=== PATIENT | male | born 1960 | race Caucasian/White ===

== ENCOUNTER 2019-11-30 06:00 | Outpatient (REF) | payer OTHER, SELFPAY ==
[2019-11-30 06:19] LABS: COVID-19 Test Negative (Negative)
== END 2019-11-30 06:01 | disposition home or self-care (01) ==
LOC: HO.LAB 06:00
PROVIDERS: Visit Provider Internal Medicine
DX: Z20.828 Contact with and (suspected) exposure to other viral communicable diseases (principal)
CPT/HCPCS: 87635

== ENCOUNTER 2020-10-09 05:59 | Outpatient (REF) | payer OTHER, SELFPAY ==
[2020-10-09 07:14] LABS: Cholesterol 214 mg/dL; Glucose Random 87 mg/dL (60-115); HDL Cholesterol 39 mg/dL; LDL Cholesterol Calculated 104 mg/dl; Triglycerides 357 mg/dL
== END 2020-10-09 06:00 | disposition home or self-care (01) ==
LOC: HO.LAB 05:59
PROVIDERS: PCP Internal Medicine; Visit Provider Internal Medicine
DX: Z00.00 Encounter for general adult medical examination without abnormal findings (principal)
CPT/HCPCS: 36415; 80061; 82947

== ENCOUNTER 2022-07-23 06:01 | Outpatient (REF) | payer OTHER, SELFPAY ==
[2022-07-23 06:29] LABS: MANUAL DIFF FLAG NO
[2022-07-23 07:28] LABS: Basophils Absolute Auto 0.1 X10*3/uL (0.0-0.2); Eosinophils Absolute Auto 0.3 X10*3/uL (0.0-0.4); Eosinophils Percent Auto 4.3 % (0-4); Hematocrit 46.9 % (42.0-52.0); Hemoglobin 15.9 g/dl (14.0-18.0); Imm Gran Abs Auto 0.02 X10*3/uL (0.00-0.03); Imm Gran Pct Auto 0.3 % (0.0-0.4); Lymphocytes Absolute Auto 1.8 X10*3/uL (1.2-4.9); Lymphocytes Percent Auto 22.7 % (20-40); Mean Corpuscular HGB Conc 33.9 g/dl (31.0-36.0); Mean Corpuscular Hemoglobin 29.6 pg (27.0-33.0); Mean Corpuscular Volume 87.2 fL (80.0-98.0); Mean Platelet Volume 10.9 fL (9.4-12.4); Monocytes Percent Auto 12.3 % (2-11); Neutrophils Absolute Auto 4.7 x10*3/uL (2.0-8.3); Neutrophils Percent Auto 59.4 % (45-73); Platelet Count 367 X10*3/uL (160-400); Red Blood Count 5.38 X10*6/uL (4.60-5.80); Red Cell Distribution Width 12.1 % (11.0-16.0)
[2022-07-23 08:07] LABS: Alanine Aminotransferase 34 U/L (0-40); Albumin Level 4.7 g/dL (3.5-5.0); Alkaline Phosphatase 71 U/L (39-117); Anion Gap 15 (12-20); Aspartate Amino Transferase 28 U/L (5-37); Bilirubin Total 0.5 mg/dL (0.0-1.0); Blood Urea Nitrogen 24 mg/dL (9-16); Calcium 10.3 mg/dL (8.4-10.2); Carbon Dioxide 26 mmol/L (22-29); Chloride 102 mmol/L (96-108); Estimated Glomerular Filt Rate > 60; Glucose Random 83 mg/dL (60-115); Potassium 5.1 mmol/L (3.3-5.1); Sodium 138 mmol/L (135-145); Total Protein 7.9 g/dL (6.5-8.0)
[2022-07-23 08:53] LABS: Cocaine Screen Urine Not Detected (Not Detect); Opiate Screen Urine Not Detected (Not Detect)
[2022-07-26 01:54] LABS: LDL Cholesterol Direct 140 mg/dL (<100)
[2022-08-14 09:10] LABS: Alphahydroxytriazolam, GCMS Ur NEGATIVE; Alprazolam, GCMS Urine NEGATIVE; Lorazepam GCMS Urine NEGATIVE; Nordiazepam, GCMS Urine NEGATIVE; Temazepam, GCMS Urine NEGATIVE
[2022-08-14 09:11] LABS: Alphahydroxymidazolam,GCMS Ur NEGATIVE; Aminoclonazepam, GCMS Urine SEE COMMENTS; Flurazepam Metabolite,GCMS Ur SEE COMMENTS
[2022-08-14 09:15] LABS: Benzo GC/MS Note SEE COMMENTS
== END 2022-07-23 06:02 | disposition home or self-care (01) ==
LOC: HO.LAB 06:01
PROVIDERS: PCP Family Medicine; Visit Provider Family Medicine
DX: Z00.00 Encounter for general adult medical examination without abnormal findings (principal); M25.551 Pain in right hip; I10 Essential (primary) hypertension; E78.5 Hyperlipidemia, unspecified
CPT/HCPCS: 80053; 80307; 80346; 83721; 85025

== ENCOUNTER 2022-08-30 12:12 | Outpatient (REF) | payer OTHER, SELFPAY | END 2022-08-30 12:13 | disposition home or self-care (01) | LOC: HO.HOSX 12:12 | PROVIDERS: Visit Provider Orthopaedic Surgery | DX: Z13.89 Encounter for screening for other disorder (principal) ==

== ENCOUNTER 2023-03-09 04:57 | Emergency (ER) | payer OTHER, SELFPAY ==
--- NOTE | ~2023-03-09 | XR_ITS ---
EXAMINATION: XR KNEE, RIGHT CLINICAL INFORMATION: Twisting injury COMPARISON: None available. TECHNIQUE: Four views of the right knee. FINDINGS: Osseous alignment is anatomic. There is moderate tricompartmental joint space narrowing and spurring. No acute fracture is seen. Postoperative changes noted with hardware at the distal femur and proximal tibia. Trace joint effusion. XR/XR knee RT 4V IMPRESSION: No acute osseous findings. Trace joint effusion. Chronic/degenerative changes.
[2023-03-09 05:01] VITALS: BP 202/103; PULSE 81; RESP 20; TEMP 36.9; O2SAT 95
[2023-03-09 05:03] VITALS: BP 202/103; BP 223/121; PULSE 80; RESP 20; TEMP 36.9; O2SAT 96; O2SAT 97; BMI 36.6
--- NOTE | 2023-03-09 05:04 | ED.LOWEXIN ---
HPI - Extremity Injury (Lower) General Chief Complaint: Fall Stated Complaint: fell, twisted knee Time Seen by Provider: 03/09/23 05:04 Source: patient Mode of arrival: ambulatory Limitations: no limitations History of Present Illness HPI Narrative: 62 yo male with PMH of HTN, arthritis compliant with his medications was at work tonight tripped on O2 tubing and slipped on pillowcase causing him to fall and twist his R knee. He is having a hard time fully flexing and extending the knee has pain on lateral and posterior aspect. 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 Prior ACL surgery on knee. complaint: knee injury Onset (ago): day(s) (1130pm last night) Injury: Right: knee Type of Injury: other (twisting) Place: work Severity: moderate Relieving factors: rest Exacerbating factors: weight bearing, movement and palpation Context: other (twisting, fall) Associated symptoms: swelling Other symptoms: none Related Data Allergies Allergy/AdvReac Type Severity Reaction Status Date / Time Penicillins AdvReac Hives Verified 03/09/23 05:48 Review of Systems Review of Systems: Constitutional : No Fever, No Chills ENT/Mouth : No Ear Pain, No Hoarseness, No sore throat Eyes: No Eye Pain, No Swelling, No Redness, No Foreign Body Cardiovascular : No Chest Pain, No SOB Respiratory : No Cough, No Dyspnea Gastrointestinal : No Nausea, No Vomiting, No Diarrhea, No abdominal Pain Genitourinary : No Dysuria, No Hematuria Musculoskeletal : positive joint pain, No Myalgias, pos Joint Swelling Skin : No Skin lacerations, No rash Neuro : No Weakness, No Numbness, No Loss of Consciousness, No Dizziness, No Headache Psych : No Anxiety/Panic, No Depression All other systems reviewed and are negative [facility] Past Medical History Attestation statement: The following information was validated with the patient. Source: old records reviewed Medical History Arthritis HTN (hypertension) Social History Social History Patient Tobacco Use Status: Never used Tobacco Advance Directives: No Advance Directives Information Provided: Yes Physical Exam Vital Signs: Vital Signs: Last Vital Signs Temp 98.4 F 03/09/23 05:03 Pulse 80 03/09/23 05:03 Resp 20 03/09/23 05:03 BP 202/103 H 03/09/23 05:03 Pulse Ox 97 03/09/23 05:03 O2 Del Method Room Air 03/09/23 05:03 BMI result Body Mass Index 36.6 Appearance: Alert. Oriented X3. No acute distress. Eyes: Pupils equal, round and reactive to light. ENT: Pharynx normal. Neck: Normal inspection. Neck supple. CVS: Normal heart rate and rhythm. Pulses normal. Respiratory: No respiratory distress. Breath sounds normal. Abdomen: Soft and nontender. Skin: Skin warm and dry. Normal skin color. Normal skin turgor. Extremities: No lower extremity edema. R knee small effusion having a hard time geting knee to full flex/ext distal NV intact, ttp along medial meniscus no sig laxity noted distal NV intact Neuro: Oriented X 3. No motor deficit. No sensory deficit. Course Course Course Narrative: manjit wrap knee - tolerated well he has immobilizer at home and knee brace he wants to use he has HTN asymptomatic declines work up and wants to take his medications at home no signs of end organ damage Medical Decision Making Medical Decision Making MDM Narrative: 62 yo male with PMH of HTN, arthritis compliant with his medications here with R knee twisting injury that occurred at work - he is NV intact has pain in R knee at this time will need xray of R knee. He is also HTNive but is asymptomatic and reports compliance no signs of end organ damage from HTN. Differential Diagnosis Differential Diagnoses: The differential diagnosis associated with the presentation includes sprain, strain, effusion, fracture Independent Interpretation I performed an independent interpretation of an: Plain X-Ray (no fracture) Radiology Impression Discussion of test interpretation with radiology: I have reviewed the radiologist's reading. Chronic Conditions Patient?s care impacted by: Hypertension Discharge Plan Discharge Clinical Impression: Right knee sprain Qualifiers: Encounter type: initial encounter Involved ligament of knee: unspecified ligament Qualified Code(s): S83.91XA - Sprain of unspecified site of right knee, initial encounter Patient Disposition: Home, Self-Care Instructions: Knee Sprain (ED), Chronic Hypertension (ED) Additional Instructions: keep elevated, ice, rest. follow up with work connection for clearance and orthopedics. return for worsening pain, swelling, numbness, tingling Referrals: Carlos A Mclean MD [Physician] - (any provider) Stand Alone Forms: Work/School Release
[2023-03-09 06:29] VITALS: BP 195/104; O2SAT 98
--- NOTE | 2023-03-09 06:39 | PC.NURSE ---
Reviewed discharge instructions with pt. pt verbalized understanding. no sign of distress.
== END 2023-03-09 06:40 | disposition home or self-care (01) ==
PROVIDERS: Emergency Provider Emergency Medicine; PCP Family Medicine
DX: S83.91XA Sprain of unspecified site of right knee, initial encounter (principal); X50.1XXA Overexertion from prolonged static or awkward postures, initial encounter; Y93.89 Activity, other specified; Y92.019 Unspecified place in single-family (private) house as the place of occurrence of the external cause; Y99.9 Unspecified external cause status
CPT/HCPCS: 73564; 99283; 99284

== ENCOUNTER → 2023-03-09 13:46 | Outpatient (BNVA) | payer OTHER, SELFPAY | PROVIDERS: PCP Family Medicine; Visit Provider Physician Assistant | DX: Z13.89 Encounter for screening for other disorder (principal) | CPT/HCPCS: 99203 ==

== ENCOUNTER → 2023-03-11 09:44 | Outpatient (BNVA) | payer OTHER, SELFPAY | PROVIDERS: PCP Family Medicine; Visit Provider Physician Assistant | CPT/HCPCS: 99213 ==

== ENCOUNTER 2023-05-26 08:33 | Outpatient (AMB) | payer OTHER, SELFPAY ==
[2023-05-26 08:43] VITALS: BP 130/90; PULSE 74; TEMP 36.3; O2SAT 97; BMI 35.1
--- NOTE | 2023-05-26 08:43 | MHC.OFFWIV ---
Intake Vital Signs 05/26/23 08:43 Height 6 ft Weight 259 lb BMI 35.1 BP 130/90 H Blood Pressure Location Lt brachial Position Sitting Pulse 74 Pulse Source Pulse Oximeter Temp 97.3 F Temp Source Temporal Artery Scan Pulse Oximetry (%) 97 Oxygen Delivery Method Room Air Intake Visit Reasons: EP Sinus infection, Throat hurts Intake Note: pt is here today for sinus infection throat hurts started 1 week ago Patient Tobacco Use Status: Never used Tobacco Allergies Penicillins Adverse Reaction (Verified 05/26/23 08:53) Hives Do you need a note to return to daycare/school/sports/work: No HPI EP Sinus infection, Throat hurts HPI Details This is a 63-year-old male patient who presents today with a one-week history of sinus pressure, sore throat, and left ear pain. States he has had nasal congestion with green mucus, and mildly productive cough. Denies any fever or chills. Has been taking [id number] Tylenol and cold/flu medication without relief. [facility] Medical History Arthritis HTN (hypertension) Social History Patient Tobacco Use Status: Never used Tobacco Review of Systems Const All systems reviewed & are unremarkable except as noted in HPI and below Physical Exam Vital Signs: Last Vital Signs Temp 97.3 F 05/26/23 08:43 Pulse 74 05/26/23 08:43 BP 130/90 H 05/26/23 08:43 Pulse Ox 97 05/26/23 08:43 Oxygen Delivery Method Room Air 05/26/23 08:43 BMI result Body Mass Index 35.1 Const General: cooperative, healthy appearing and no acute distress HEENT Head: Yes normal to inspection Ears: hearing grossly normal bilaterally, external ears normal, TM normal on the left and TM abnormal (right TM erythematous, purulent effusion) General nose exam: Normal external nose present and Nasal discharge present mucoid Face and sinus: Yes sinus tenderness (maxillary) Mouth: Normal oral and palatal mucosa present Throat: Yes posterior oropharynx abnormal (mild erythema) Neck Neck: Yes no lymphadenopathy Resp Effort & Inspection: normal respiratory effort Auscultation: clear to auscultation bilaterally Cardio Rate: regular rate Rhythm: regular rhythm Skin General skin exam: no rashes or lesions noted Extrem General: Yes capillary refill normal and Yes no clubbing, cyanosis or edema Psych Appearance: grossly normal Mental Status: mental status grossly normal Speech and movement: Normal speech and movement present Results AMB Rapid Strep AMB Rapid Strep Negative Last Edit by Amol Benitez MA on 05/26/23 09:10 Assessment & Plan Assessment & Plan (1) Acute left otitis media: Code(s): H66.92 - Otitis media, unspecified, left ear Plan: Rapid strep negative. PCN allergy. Doxycycline bid 7 days for left OM. Reviewed indications, use, possible s/e. Advised ongoing otc cold/flu medication for symptom management. If he does not improve with treatment, he can return to the clinic for further evaluation. He agrees to plan. Medications: New doxycycline hyclate 100 mg PO BID 7 days 14 caps 0RF H66.92 - Otitis media, unspecified, left ear Coding Level of Care Code Est Pt Level 4 (06025) Diagnoses Acute left otitis media H66.92
== END 2023-05-26 09:11 | disposition home or self-care (01) ==
PROVIDERS: PCP Family Medicine; Visit Provider Nurse Practitioner Family
DX: H66.92 Otitis media, unspecified, left ear (principal)
CPT/HCPCS: 99214

== ENCOUNTER 2023-11-01 15:42 | Outpatient (AMB) | payer OTHER, SELFPAY ==
--- NOTE | 2023-11-01 15:47 | A.OFFPC_ITS ---
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 Intake Note: pt is here for est care, requesting PE Director Of Rotc Required: No Accompanied by: Self / Same As Patient Allergies Penicillins Adverse Reaction (Verified 11/01/23 15:48) Hives Medication List - Last Reconciled 11/01/23 by PATRICIO Lopez clonidine HCl 0.3 mg PO BID labetalol 400 mg PO tramadol 50 - 100 mg PO QID PRN Tobacco use date assessed: 11/01/23 Dental Screening Dental Screen Date: 11/01/23 Did you have a dental visit in the last 12 months?: Yes Did you have a dental problem in the last 6 months where you did not have access to dental care?: No Was dental information given to patient?: Patient has dentist HPI 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 Will order labs. Refuses all colon screens. Pt has been on tramadol for over 20 years due to chronic back and shoulder pain. Will have pt sign a narcotic contract. [facility] Medical History (Updated 11/01/23 @ 16:23 by PATRICIO Lopez) Chronic lower back pain Chronic right shoulder pain Arthritis HTN (hypertension) Surgical History S/P knee surgery Family History Mother No problems noted. Father High blood pressure Social History Housing: House Alcohol intake: current Alcohol intake frequency: a few times a month Alcohol type: beer Patient Tobacco Use Status: Never used Tobacco Use of substances other than those prescribed or required for medical reasons: No service: No Current occupational status: employed Current occupation: [employer] - envi[employer] Current occupational exposures/hazards: No Cognitive needs: No Hearing needs: No Vision needs: No Questionnaire PHQ-9 Over the last 2 weeks, how often have you been bothered by any of the following problems? 1. Little interest or pleasure in doing things: not at all 2. Feeling down, depressed, or hopeless: not at all 3. Trouble falling or staying asleep, or sleeping too much: not at all 4. Feeling tired or having little energy: not at all 5. Poor appetite or overeating: not at all 6. Feeling bad about yourself - or that you are a failure or have let yourself or your family down: not at all 7. Trouble concentrating on things, such as reading the newspaper or watching television: not at all 8. Moving or speaking so slowly that other people could have noticed. Or the opposite - being so fidgety or restless that you have been moving around a lot more than usual: not at all 9. Thoughts that you would be better off or of hurting yourself in some way: not at all Total score: 0 Depression Screening Interpretation: Negative Depression Screening Done: Yes 88731 - PHQ-9 Billing: Yes Source: Developed by Drs. Michael Montez, Waleska Bills, Richard Roberts and colleagues, with an educational mio from [employer]. Thrive Questionnaire Date Thrive assessed: 11/01/23 I am a: Patient What is your living situation today?: I have a steady place to live Within the past 12 months, did the food you bought not last and you didn't have the money to get more?: Never true Within the past 12 months, did you worry whether your food would run out before you got money to buy more?: Never true Do you have trouble paying for medicines?: No Do you have trouble getting transportation to medical appointments?: No Do you have trouble paying your heating and electricity bill?: No Do you have trouble taking care of your child, family member or friend?: No Do you have trouble with day-to-day activities such as bathing, preparing meals, shopping, managing finances, etc.?: No Are you interested in more education?: No Please select the resources that you would like help with: None Currently or been in a relationship where the following occur: No concerns reported THRIVE Score: 0 AUDIT C Alcohol Use Questionnaire (AUDIT-C) 1. How often do you have a drink containing alcohol?: 2-4 times a month 2. How many drinks containing alcohol do you have on a typical day when you are drinking?: 1 or 2 3. How often do you have six or more drinks on one occasion?: Less than monthly Total Score: 3 Score Reviewed/Action Taken: Yes TERRANCE-7 AMB Questionnaire TERRANCE-7 Date TERRANCE - 7 assessed: 11/01/23 Feeling nervous, anxious, or on edge: 0 = Not at all Not being able to stop or control worryin = Not at all Worrying too much about different things: 0 = Not at all Trouble relaxin = Not at all Being so restless that it is hard to sit still: 0 = Not at all Becoming easily annoyed or irritable: 0 = Not at all Feeling afraid as if something awful might happen: 0 = Not at all Total TERRACNE-7 score (0-4 normal; 5-9 mild; 10-14 moderate; 15-21 severe): 0 Source: Developed by Drs. Michael Montez, Waleska Bills, Richard Roberts and colleagues, with an educational mio from [employer]. TERRANCE-7 Assessment Billing TERRANCE-7 Assessment Tool: TERRANCE-7 Assessment 90897 Review of Systems Const Denies chills and Denies fever(s) Eyes Denies blurry vision ENT Denies vertigo, Denies dizziness and Denies sore throat Card Denies chest pain at rest, Denies chest pain with activity, Denies diaphoresis, Denies dyspnea and Denies dyspnea on exertion Resp Denies cough, Denies dyspnea, Denies dyspnea on exertion and Denies wheezing GI Denies abdominal pain, Denies melena, Denies hematochezia, Denies constipation, Denies diarrhea and Denies loose stools Denies hematuria Musc Denies numbness and Denies tingling Skin/Breast Denies lesions Neuro Denies vertigo, Denies dizziness, Denies numbness and Denies tingling Psych Denies anxiety, Denies depression, Denies homicidal ideation, Denies suicidal ideation and Denies other (substance abuse) Aller/Immun Denies wheezing Physical exam (Primary Care) Vital Signs: Last Vital Signs Pulse 78 11/01/23 15:48 BP 138/90 H 11/01/23 15:48 Pulse Ox 97 11/01/23 15:48 Oxygen Delivery Method Room Air 11/01/23 15:48 BMI result Body Mass Index 35.4 Tobacco/Smoking Status: Tobacco use Status Tobacco use date assessed 11/01/23 11/01/23 15:52 Patient Tobacco Use Status Never used Tobacco 11/01/23 15:52 PHQ-9: PHQ-9 Score PHQ-9: Total score 0 11/01/23 16:25 Depression Screening Interpretation: Negative Thrive Assessment: Date of Thrive Assessment Date Thrive assessed 11/01/23 11/01/23 15:52 Currently or been in a relationship where the following occur: No concerns reported Const General: cooperative Nutritional Appearance: well nourished Orientation/consciousness: patient oriented x3 HENMT Head: Yes normal to inspection, Yes normocephalic and Yes atraumatic Ears: TM's normal bilaterally Eyes General: appearance normal, both eyes and all related structures Alignment and Position: alignment normal and position normal Neck Neck: Yes normal visual inspection, Yes no lymphadenopathy and Yes supple Resp Effort & Inspection: normal respiratory effort Auscultation: clear to auscultation bilaterally Cardio Rate: regular rate Rhythm: regular rhythm Heart sounds: S1 normal heart sound present, S2 normal heart sound present and no murmurs GI Palpation (GI): Soft to palpation and nontender Auscultation: normal bowel sounds Male General Exam: Yes normal external exam Penis: normal penis Scrotum: scrotum normal, testes descended bilaterally and no inguinal hernias Testes: no testicular mass Skin Rashes: no rashes Neuro General: patient oriented x3, moves all extremities, no focal motor deficits and deep tendon reflexes 2+ bilaterally Romberg Test: Negative Psych Appearance: grossly normal Mental Status: mental status grossly normal Speech and movement: Normal speech and movement present Affect: normal affect Attitude: cooperative Thought process: Normal thought process present Thought content: Normal thought content present Insight: Good insight present (Psych) Judgement: Good judgement present (Psych) Assessment and Plan Assessment & Plan (1) Physical exam: Code(s): Z00.00 - Encounter for general adult medical examination without abnormal findings Plan: Labs ordered (2) Chronic right shoulder pain: Code(s): M25.511 - Pain in right shoulder; G89.29 - Other chronic pain Plan: Taking tramadol (3) Chronic lower back pain: Code(s): M54.50 - Low back pain, unspecified; G89.29 - Other chronic pain Plan: Taking tramadol Plan The patient agreed to the use of a medical lab tech instructor for this encounter. Scribed for PATRICIO Sotelo by Sondra Mendez medical lab tech instructor, on 11/01/2023 at 16:10 EST. Medications: Changed From labetalol 100mg every 6 hrs 400 mg PO To labetalol 400 mg orally 100mg 4 times a day; 100mg every 6 hrs 180 tabs 1RF 90 days Coding Level of Care Code New Pt Prev Care 40-64y(85775) Diagnoses Physical exam Z00.00 Chronic right shoulder pain M25.511; G89.29 Chronic lower back pain M54.50; G89.29 Additional Codes TERRANCE-7 Assessment Billing - TERRANCE-7 Assessment Tool: TERRANCE-7 Assessment 64843 ([id number])
[2023-11-01 15:48] VITALS: BP 138/90; PULSE 78; O2SAT 97; BMI 35.4
[2023-11-01 16:37] VITALS: BP 130/80
== END 2023-11-01 16:45 | disposition home or self-care (01) ==
PROVIDERS: PCP Family Medicine; Visit Provider Nurse Practitioner Family
DX: Z00.00 Encounter for general adult medical examination without abnormal findings (principal); M25.511 Pain in right shoulder; G89.29 Other chronic pain; M54.50 Low back pain, unspecified

== ENCOUNTER → 2023-11-01 15:42 | Outpatient (BNVA) | payer OTHER, SELFPAY | PROVIDERS: PCP Family Medicine; Visit Provider Nurse Practitioner Family | DX: Z00.00 Encounter for general adult medical examination without abnormal findings (principal); G89.29 Other chronic pain; M25.511 Pain in right shoulder; M54.50 Low back pain, unspecified | CPT/HCPCS: 96127 ==

== ENCOUNTER 2024-01-31 06:03 | Outpatient (REF) | payer OTHER, SELFPAY ==
[2024-01-31 06:17] LABS: MANUAL DIFF FLAG NO
[2024-01-31 08:00] LABS: Basophils Absolute Auto 0.1 X10*3/uL (0.0-0.2); Eosinophils Absolute Auto 0.3 X10*3/uL (0.0-0.4); Eosinophils Percent Auto 2.5 % (0-4); Hematocrit 43.3 % (42.0-52.0); Imm Gran Abs Auto 0.03 X10*3/uL (0.00-0.03); Imm Gran Pct Auto 0.3 % (0.0-0.4); Lymphocytes Absolute Auto 2.4 X10*3/uL (1.2-4.9); Lymphocytes Percent Auto 24.1 % (20-40); Mean Corpuscular HGB Conc 34.6 g/dl (31.0-36.0); Mean Corpuscular Hemoglobin 29.5 pg (27.0-33.0); Mean Corpuscular Volume 85.1 fL (80.0-98.0); Mean Platelet Volume 10.7 fL (9.4-12.4); Monocytes Absolute Auto 0.9 X10*3/uL (0.1-1.2); Monocytes Percent Auto 9.3 % (2-11); Neutrophils Absolute Auto 6.2 x10*3/uL (2.0-8.3); Neutrophils Percent Auto 62.8 % (45-73); Platelet Count 378 X10*3/uL (160-400); Red Blood Count 5.09 X10*6/uL (4.60-5.80); Red Cell Distribution Width 12.1 % (11.0-16.0); White Blood Count 9.9 X10*3/uL (4.8-10.8)
[2024-01-31 08:22] LABS: Appearance Urine Clear; Color Urine Yellow; Glucose Urine UA Negative (Negative); Leukocyte Esterase Urine Negative (Negative); Nitrite Urine Negative (Negative); Urine Blood Negative (Negative); Urine Ketones Negative (Negative); Urine Protein Negative (Neg-Trace)
[2024-01-31 08:38] LABS: Prostate Specific Antigen Scr 0.18 ng/mL (<0.05-4.0)
[2024-01-31 08:40] LABS: Albumin Level 4.5 g/dL (3.5-5.0); Anion Gap 14 (12-20); Aspartate Amino Transferase 32 U/L (5-37); Bilirubin Total 0.5 mg/dL (0.0-1.0); Blood Urea Nitrogen 17 mg/dL (9-16); Calcium 9.6 mg/dL (8.4-10.2); Carbon Dioxide 27 mmol/L (22-29); Chloride 101 mmol/L (96-108); Cholesterol 197 mg/dL (<200); Estimated Glomerular Filt Rate > 60; Glucose Fasting 94 mg/dL (60-99); HDL Cholesterol 49 mg/dL (>40); LDL Cholesterol Calculated 127 mg/dL (<100); Potassium 4.8 mmol/L (3.3-5.1); Sodium 137 mmol/L (135-145); Total Protein 7.4 g/dL (6.5-8.0); Triglycerides 108 mg/dL (<150)
[2024-01-31 08:56] LABS: TSH reflex Free T4 1.69 uIU/mL (0.32-4.0); Vitamin D 25-OH Total 55.3 ng/mL (>30)
[2024-01-31 09:21] LABS: Alanine Aminotransferase 30 U/L (0-40); Alkaline Phosphatase 70 U/L (39-117)
== END 2024-01-31 06:04 | disposition home or self-care (01) ==
LOC: HO.LAB 06:03
PROVIDERS: PCP Nurse Practitioner Family; Visit Provider Nurse Practitioner Family
DX: Z12.5 Encounter for screening for malignant neoplasm of prostate (principal); I10 Essential (primary) hypertension; E55.9 Vitamin D deficiency, unspecified
CPT/HCPCS: 36415; 80053; 80061; 81003; 82306; 84153; 84443; 85025

== ENCOUNTER 2024-04-30 06:03 | Outpatient (REF) | payer OTHER, SELFPAY ==
[2024-04-30 07:57] LABS: Albumin Level 4.7 g/dL (3.5-5.0); Alkaline Phosphatase 71 U/L (39-117); Anion Gap 14 (12-20); Aspartate Amino Transferase 23 U/L (5-37); Bilirubin Total 0.5 mg/dL (0.0-1.0); Blood Urea Nitrogen 13 mg/dL (9-16); Calcium 9.6 mg/dL (8.4-10.2); Carbon Dioxide 26 mmol/L (22-29); Chloride 106 mmol/L (96-108); Cholesterol 154 mg/dL (<200); Estimated Glomerular Filt Rate > 60; Glucose Fasting 109 mg/dL (60-99); HDL Cholesterol 47 mg/dL (>40); LDL Cholesterol Calculated 91 mg/dL (<100); Potassium 4.9 mmol/L (3.3-5.1); Sodium 141 mmol/L (135-145); Triglycerides 83 mg/dL (<150)
[2024-04-30 08:10] LABS: Alanine Aminotransferase 30 U/L (0-40)
== END 2024-04-30 06:04 | disposition home or self-care (01) ==
LOC: HO.LAB 06:03
PROVIDERS: PCP Nurse Practitioner Family; Visit Provider Nurse Practitioner Family
DX: E78.5 Hyperlipidemia, unspecified (principal)
CPT/HCPCS: 36415; 80053; 80061

== ENCOUNTER 2024-11-26 08:58 | Outpatient (AMB) | payer OTHER, SELFPAY ==
--- NOTE | 2024-11-26 09:02 | A.OFFPC_ITS ---
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 He has a history of chronic back pain for which he takes tramadol. He is on a pain management contract with the physician, which will be renewed for the current year. The patient denies any chest pain, shortness of breath, abdominal pain, blood in stool, constipation, diarrhea, suicidal ideation, or homicidal ideation. He declines a colonoscopy but is interested in the Cologuard test for colon cancer screening. HTN: adding amlodipine 5mg to his med regime. He understands the major side effects and goal BP as well. He will cont to monitor at home, report elevated values Health Maintenance - Colon cancer screening with stool test (Cologuard) discussed as an alternative to colonoscopy -declined most vaccinations (except TdaP , pharmacy) Social History Review of Systems - Cardiovascular: Denies chest pain - Respiratory: Denies shortness of breat h - Gastrointestinal: Denies abdominal adin n, blood in stool, constipation, diarrhea - Psychiatric: Denies suicidal ideation, homicidal ideation Physical Exam General: Cooperative, healthy appearing, comfortable, no acute distress and well developed Orientation: Patient oriented x3 Limitations: No limitations Head: Normal to inspection Ears: Hearing grossly normal bilaterally Nose: Normal external nose present Face and sinus: Normal facial exam Eyes: Appearance normal, both eyes and all related structures Neck: Normal visual inspection and Yes full ROM Respiratory: Normal respiratory effort and able to speak in complete sentences. Clear to auscultation bilaterally Cardiovascular: Regular rate and rhythm. Normal S1 and S2 GI: Normal to inspection. Soft to palpation and nontender : Testicles without masses/lesions and no hernias appreciated Skin: No rashes or lesions noted Neuro: Patient oriented x3 Extremities: Normal to inspection Results Plan 1. Chronic Back Pain The patient continues to manage chronic back pain with tramadol and is under a pain management contract, which will be renewed. 2. Essential (primary) hypertension I10 The patient prefers Cologuard for colon cancer screening over a colonoscopy, and this will be ordered. Discussion Notes I discussed with the patient the option of using Cologuard for colon cancer screening as an alternative to colonoscopy, which he prefers. We also reviewed his pain management contract, which he will re-sign for this year. Patient Instructions - Continue taking tramadol as prescribed for back pain. - Complete the Cologuard test as ordered for colon cancer screening. - Re-sign the pain management contract f or this year. [facility] Medical History Chronic lower back pain Chronic right shoulder pain Arthritis HTN (hypertension) Surgical History S/P knee surgery Family History Mother No problems noted. 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 1. Little interest or pleasure in doing things: not at all 2. Feeling down, depressed, or hopeless: not at all 3. Trouble falling or staying asleep, or sleeping too much: not at all 4. Feeling tired or having little energy: not at all 5. Poor appetite or overeating: not at all 6. Feeling bad about yourself - or that you are a failure or have let yourself or your family down: not at all 7. Trouble concentrating on things, such as reading the newspaper or watching television: not at all 8. Moving or speaking so slowly that other people could have noticed. Or the opposite - being so fidgety or restless that you have been moving around a lot more than usual: not at all 9. Thoughts that you would be better off or of hurting yourself in some way: not at all Total score: 0 Depression Screening Interpretation: Negative Depression Screening Done: Yes 66185 - PHQ-9 Billing: Yes Source: Developed by Drs. Michael Montez, Waleska Bills, Richard Roberts and colleagues, with an educational mio from [employer]. Thrive Questionnaire Date Thrive assessed: 11/01/23 I am a: Patient What is your living situation today?: I have a steady place to live Within the past 12 months, did the food you bought not last and you didn't have the money to get more?: Never true Within the past 12 months, did you worry whether your food would run out before you got money to buy more?: Never true Do you have trouble paying for medicines?: No Do you have trouble getting transportation to medical appointments?: No Do you have trouble paying your heating and electricity bill?: No Do you have trouble taking care of your child, family member or friend?: No Do you have trouble with day-to-day activities such as bathing, preparing meals, shopping, managing finances, etc.?: No Are you currently unemployed and looking for a job?: No Are you interested in more education?: No Please select the resources that you would like help with: None Currently or been in a relationship where the following occur: No concerns reported THRIVE Score: 0 AUDIT C Alcohol Use Questionnaire (AUDIT-C) 1. How often do you have a drink containing alcohol?: 2-4 times a month 2. How many drinks containing alcohol do you have on a typical day when you are drinking?: 3 or 4 3. How often do you have six or more drinks on one occasion?: Less than monthly Total Score: 4 Score Reviewed/Action Taken: Yes TERRANCE-7 AMB Questionnaire TERRANCE-7 Date TERRANCE - 7 assessed: 11/26/24 Feeling nervous, anxious, or on edge: 1 = Several days Not being able to stop or control worryin = Not at all Worrying too much about different things: 0 = Not at all Trouble relaxin = Not at all Being so restless that it is hard to sit still: 0 = Not at all Becoming easily annoyed or irritable: 0 = Not at all Feeling afraid as if something awful might happen: 0 = Not at all Total TERRANCE-7 score (0-4 normal; 5-9 mild; 10-14 moderate; 15-21 severe): 1 Source: Developed by Drs. Michael Montez, Waleska Bills, Richard Roberts and colleagues, with an educational mio from [employer]. TERRANCE-7 Assessment Billing TERRANCE-7 Assessment Tool: TERRANCE-7 Assessment 87618 Physical exam (Primary Care) Vital Signs: Last Vital Signs Temp 98.3 F 11/26/24 09:03 Pulse 68 11/26/24 09:03 Resp 16 11/26/24 09:03 BP 160/102 H 11/26/24 09:03 Pulse Ox 96 11/26/24 09:03 Oxygen Delivery Method Room Air 11/26/24 09:03 BMI result Body Mass Index 35.5 Tobacco/Smoking Status: Tobacco use Status Tobacco use date assessed 11/26/24 11/26/24 09:09 Patient Tobacco Use Status Never used Tobacco 11/26/24 09:03 PHQ-9: PHQ-9 Score PHQ-9: Total score 0 11/26/24 09:48 Depression Screening Interpretation: Negative Thrive Assessment: Date of Thrive Assessment Date Thrive assessed 11/01/23 11/26/24 09:03 Currently or been in a relationship where the following occur: No concerns reported Coding Level of Care Code Est Pt Level 3 (00707) Est Pt Prev Care 40-64y(77782) Diagnoses Physical exam Z00.00 Vitamin D deficiency E55.9 Screening for prostate cancer Z12.5 Chronic prescription opiate use Z79.891 HTN (hypertension) I10 Additional Codes TERRANCE-7 Assessment Billing - TERRANCE-7 Assessment Tool: TERRANCE-7 Assessment 42066 ([id number]) PHQ-9 - 52252 - PHQ-9 Billing: Yes ([id number]) Assessment & Plan Assessment & Plan (1) Physical exam: Code(s): Z00.00 - Encounter for general adult medical examination without abnormal findings Category: Medical (2) Vitamin D deficiency: Code(s): E55.9 - Vitamin D deficiency, unspecified Category: Medical (3) Screening for prostate cancer: Code(s): Z12.5 - Encounter for screening for malignant neoplasm of prostate Category: Medical (4) Chronic prescription opiate use: 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 Orders: Orders Complete Blood Count Auto Diff Today Z00.00 - Encounter for general adult medical examination without abnormal findings Comprehensive [place]. Panel Fast Today Z00.00 - Encounter for general adult medical examination without abnormal findings Lipid Panel Today Z00.00 - Encounter for general adult medical examination without abnormal findings Prostate Specific Antigen Scr Today Z12.5 - Encounter for screening for malignant neoplasm of prostate Drug Screen Urine Today Z79.891 - assisted (current) use of opiate analgesic AMB EKG-In Office Today I10 - Essential (primary) hypertension TSH reflex Free T4 Today Z00.00 - Encounter for general adult medical examination without abnormal findings UA CC w/rflx Micro + Cult Today Z00.00 - Encounter for general adult medical examination without abnormal findings Vitamin D 25-OH Total Today E55.9 - Vitamin D deficiency, unspecified Referrals Cologuard Test Z12.11 - Encounter for screening for malignant neoplasm of colon, Z12.12 - Encounter for screening for malignant neoplasm of rectum Medications: New amlodipine 5 mg PO DAILY 30 tabs 4RF 30 days
[2024-11-26 09:03] VITALS: BP 160/102; PULSE 68; RESP 16; TEMP 36.8; O2SAT 96; BMI 35.5
[2024-11-26 10:07] VITALS: BP 138/92
== END 2024-11-26 11:10 | disposition home or self-care (01) ==
LOC: HO.HMCC 08:59
PROVIDERS: PCP Family Medicine; Visit Provider Nurse Practitioner Family
DX: Z00.00 Encounter for general adult medical examination without abnormal findings (principal); I10 Essential (primary) hypertension; E55.9 Vitamin D deficiency, unspecified; Z12.5 Encounter for screening for malignant neoplasm of prostate; Z79.891 Long term (current) use of opiate analgesic

== ENCOUNTER → 2024-11-26 08:58 | Outpatient (BNVA) | payer OTHER, SELFPAY | PROVIDERS: PCP Family Medicine; Visit Provider Nurse Practitioner Family | DX: Z00.00 Encounter for general adult medical examination without abnormal findings (principal); E55.9 Vitamin D deficiency, unspecified; I10 Essential (primary) hypertension; M54.9 Dorsalgia, unspecified; G89.29 Other chronic pain; Z79.891 Long term (current) use of opiate analgesic; Z13.31 Encounter for screening for depression; Z13.30 Encounter for screening examination for mental health and behavioral disorders, unspecified | CPT/HCPCS: 96127 ==

== ENCOUNTER 2025-01-22 05:40 | Inpatient (IN) | payer OTHER, SELFPAY ==
[2025-01-22] VITALS (9 sets, daily range): BP systolic 146–166; BP diastolic 72–86; PULSE 78–104; RESP 16–20; TEMP 36.7–38.5; O2SAT 94–97; BMI 36.6; BMI 36.8
--- NOTE | ~2025-01-22 | CT_ITS ---
EXAMINATION: CT FOREARM WITH CONTRAST, LEFT CT left forearm was dictated with CT hand. Electronically signed by: Marquez Cintron MD 01/28/2025 04:30 PM EST
--- NOTE | ~2025-01-22 | XR_ITS ---
EXAMINATION: XR WRIST 3 OR MORE VIEWS LEFT, XR HAND 3 OR MORE VIEWS LEFT HISTORY: overlying infection COMPARISON: There are no prior studies available for comparison. FINDINGS: Six views of the left hand and wrist are submitted. Osseous mineralization is normal. There is no fracture or dislocation. 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 There is soft tissue swelling of the thenar eminence and dorsum of the hand. XR/XR wrist LT min 3V IMPRESSION: Soft tissue swelling of the thenar eminence and dorsum of the hand. No plain film evidence of osteomyelitis. If this remains a clinical concern, three-phase bone scan or MRI could be performed. Electronically signed by: Michael Lovelace MD 01/22/2025 08:00 AM MANA MELISSA
--- NOTE | ~2025-01-22 | XR_ITS ---
CLINICAL HISTORY: cough, sob 2 view chest x-ray. Comparison: None Findings: The lungs are adequately expanded. No focal consolidation. No effusion or pneumothorax. Cardiac and mediastinal contours are within normal limits. No acute osseous abnormality Impression: No acute process. This document has been electronically signed by: Sterling Gil MD on 01/22/2025 08:09:18
--- NOTE | ~2025-01-22 | CT_ITS ---
CLINICAL HISTORY: Worsening cellulitis CT upper extremity with contrast Findings: Subcutaneous edema of the anterior and medial left forearm. No drainable fluid collection. The subcutaneous edema extends to the dorsal surface of the hand. Foci gas adjacent to the dorsal right index finger metacarpal phalangeal joint ( series 7, image 175), within the adjacent musculature ( series 7, image 181), and the palmar edge of the musculature (series 7, image 172). Impression: Extensive subcutaneous edema of the left forearm which can be seen in the clinical setting of cellulitis. No drainable fluid collection. Few foci of gas adjacent to the index finger metacarpophalangeal joint and within the flexor and abductor pollicis brevis musculature. Correlate with recent manipulation or rule out necrotizing soft tissue infection clinically. This document has been electronically signed by: Sierra Vela MD on 01/26/2025 20:32:58
--- NOTE | ~2025-01-22 | XR_ITS ---
EXAMINATION: XR WRIST 3 OR MORE VIEWS LEFT, XR HAND 3 OR MORE VIEWS LEFT HISTORY: overlying infection COMPARISON: There are no prior studies available for comparison. FINDINGS: Six views of the left hand and wrist are submitted. Osseous mineralization is normal. There is no fracture or dislocation. 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 There is soft tissue swelling of the thenar eminence and dorsum of the hand. XR/XR hand LT min 3V IMPRESSION: Soft tissue swelling of the thenar eminence and dorsum of the hand. No plain film evidence of osteomyelitis. If this remains a clinical concern, three-phase bone scan or MRI could be performed. Electronically signed by: Michael Lovelace MD 01/22/2025 08:00 AM MANA MELISSA
[2025-01-22 06:40] LABS: Hematocrit 40.7 % (42.0-52.0); Hemoglobin 13.8 g/dl (14.0-18.0); Imm Gran Abs Auto 0.10 X10*3/uL (0.00-0.03); Imm Gran Pct Auto 0.6 % (0.0-0.4); Lymphocytes Absolute Auto 1.5 X10*3/uL (1.2-4.9); MANUAL DIFF FLAG SCAN; Mean Corpuscular HGB Conc 33.9 g/dl (31.0-36.0); Mean Corpuscular Hemoglobin 29.5 pg (27.0-33.0); Mean Corpuscular Volume 87.0 fL (80.0-98.0); NRBC Abs Auto 0.000 X10*3/uL (0.0-0.012); NRBC Pct Auto 0.0 /100WBC (0.0-0.2); Platelet Count 316 X10*3/uL (160-400); Red Blood Count 4.68 X10*6/uL (4.60-5.80); SCAN SMEAR FLAG 1; White Blood Count 18.0 X10*3/uL (4.8-10.8)
[2025-01-22 06:51] LABS: Alanine Aminotransferase 25 U/L (0-40); Albumin Level 4.4 g/dL (3.5-5.0); Alkaline Phosphatase 74 U/L (39-117); Anion Gap 14 (12-20); Aspartate Amino Transferase 25 U/L (5-37); Blood Urea Nitrogen 19 mg/dL (9-16); Calcium 9.1 mg/dL (8.4-10.2); Carbon Dioxide 22 mmol/L (22-29); Chloride 104 mmol/L (96-108); Creatinine Clr Calc Pharmacy 116.1; Estimated Glomerular Filt Rate > 60; Potassium 3.9 mmol/L (3.3-5.1); Sodium 136 mmol/L (135-145); Total Protein 7.0 g/dL (6.5-8.0)
[2025-01-22 07:08] LABS: Resp Syncy Virus RNA Qual PCR NEGATIVE (Negative); SARS COV2 PCR INHOUSE NEGATIVE (Negative)
--- NOTE | 2025-01-22 07:35 | ED.EXTPRO ---
HPI - Extremity Problem General Chief complaint: Extremity Injury, Upper Stated complaint: l hand swelling laceration at work Time Seen by Provider: 01/22/25 07:07 Source: patient Mode of arrival: ambulatory Limitations: no limitations History of Present Illness ED Provider: KELSY RIVERA PA-C HPI Narrative: 64 year old male with pmhx significant for HTN presents to the ED today with left hand pain/swelling x4 days. 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 Since this time, has had pain , redness and swelling to the left hand. He reports waking up this morning and noticing a red line extending up his left arm. Reports pain with moving his fingers and wrist. States his tetanus is not up-to-date. Denies neck pain, vision changes, chest pain, nausea/ vomiting, numbness/tingling / weakness to the left upper extremity. Related Data Home Medications ?Medication ?Instructions ?Recorded ?Confirmed labetalol 200 mg tablet 100 mg PO QID 01/22/25 01/22/25 Previous Rx's ?Medication ?Instructions ?Recorded atorvastatin 10 mg tablet 10 mg PO BEDTIME #90 tabs 09/03/24 clonidine HCl 0.3 mg tablet 0.3 mg PO BID #180 tabs 11/07/24 amlodipine 5 mg tablet 5 mg PO DAILY 30 days #30 tabs 11/26/24 tramadol 50 mg tablet 50 mg PO QID PRN pain, severe 30 01/01/25 days #120 tabs Allergies Allergy/AdvReac Type Severity Reaction Status Date / Time Penicillins AdvReac Hives Verified 01/22/25 05:48 Review of Systems Review of Systems: Yes all other systems are reviewed and are negative [facility] Past Medical History Attestation statement: The following information was validated with the patient. Source: old records reviewed and nursing notes reviewed Medical History Chronic lower back pain Chronic right shoulder pain Arthritis HTN (hypertension) Surgical History S/P knee surgery Family History Family History Mother No problems noted. 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 Skin: Warm, dry, intact. No rashes or lesions. Head: Normocephalic, atraumatic. EENT: Hearing is intact b/l. Conjunctiva clear. Sclera is anicteric. PERRLA. EOM intact. Moist mucous membranes.? Neck: Supple without LAD Cardiac: Chest wall symmetric. RRR Lungs: Normal respiratory effort without accessory muscle use. CTA bilaterally. No rales, rhonchi, or wheezes.? Abdomen: Soft, non-tender, non-distended. No rebound tenderness or guarding. Positive BS x4. Back: No midline spinous or paraspinal tenderness. No step off deformity. Ext: + See photo of left upper extremity below. there is a small wound to the dorsal webbed space between left 1st and 2nd digits with with surrounding erythema extending to wrist and PIP of left 2nd digit. warm, ttp. no palpable crepitus. There is streaking up the left upper extremity to approximately mid upper arm. pain with active/passive motion of the L wrist. he has pain with axial loading. erythema marked with skin pen. Neuro: AOx3. Normal speech. Ambulating with steady gait. Course Course Course Narrative: 0800 -- CBC showing leukocytosis to 18 with neutrophil predominance. Chemistry without acute electrolyte abnormality requiring intervention. ESR wnl however CRP is markedly elevated at 15. No INCOENTE. Random glucose 131, no anion gap. Liver function WNL. Negative COVID, flu, RSV. > sepsis not suspected at 0800 > Discussed with my attending - concern for necrotizing fasciitis v streptococcal infection. I have ordered cefepime and vancomycin for coverage. I am consulting ID as well to see if adding clindamycin is recommended. xrs pending. > will reach out to ortho d/t concern for joint involvement > IV tylenol and morphine ordered for pain control 826 -- xr left hand/wrist without evidence of SQ gas. cxr without pneumonia. awaiting response from ID and ortho. patient stable at this time. 942 -- I spoke with ID Dr. Jauregui - her recommendation is to add clindamycin IV along with obtaining HIV, hep B and C testing, and urine tox screen. these hae been ordered. awaiting ortho recommendation. 5 -- Dr. Rowan has evaluated patient at bedside - she does not have concern for necrotizing fasciitis or septic joint at this time. She suspects cellulitis with lymphangitis and is recommending admission to medicine for IV antibiotics which I agree with. Patient is agreeable to admission. Will reach out to hospitalist. Medications Administered Discontinued Medications Generic Name Dose Route Start Last Admin Trade Name Freq PRN Reason Stop Dose Admin Diphtheria/Tetanus/Acell Pertussis 0.5 ml 01/22/25 07:41 01/22/25 08:40 Diphth,Pertus(Acell),Tet Adult 0.5 Ml Syringe IM 01/22/25 07:42 0.5 ml .ONCE ONE Administration Hydromorphone HCl 1 mg 01/22/25 10:55 01/22/25 11:54 Hydromorphone Hcl 1 Mg/Ml Syringe IVPUSH 01/22/25 10:56 1 mg ONCE ONE Administration Protocol Vancomycin HCl 2,000 mg in 500 mls @ 250 mls/hr 01/22/25 07:35 01/22/25 13:14 Vancomycin/Ns IV 01/22/25 09:34 Infused ONCE ONE Infusion Sodium Chloride 1,000 mls @ 999 mls/hr 01/22/25 07:45 01/22/25 09:59 Ns IV 01/22/25 08:45 Infused .Q1H1M LATISHA Infusion Acetaminophen 1,000 mg in 100 mls @ 400 mls/hr 01/22/25 07:38 01/22/25 09:01 Ofirmev IV 01/22/25 07:52 Infused ONCE ONE Infusion Cefepime HCl 2 gm in 50 mls @ 100 mls/hr 01/22/25 08:03 01/22/25 09:59 Maxipime IV 01/22/25 08:32 Infused ONCE ONE Infusion Clindamycin Phosphate 600 mg in 50 mls @ 100 mls/hr 01/22/25 09:11 01/22/25 13:13 Cleocin IV 01/22/25 09:40 100 mls/hr ONCE ONE Administration Morphine Sulfate 4 mg 01/22/25 07:38 01/22/25 08:35 Morphine Sulfate 4 Mg/Ml Cartridge IVPUSH 01/22/25 07:39 4 mg ONCE ONE Administration Protocol Medical Decision Making Medical Decision Making MDM Narrative: 64 year old male with pmhx significant for HTN presents to the ED today with left hand pain/swelling x4 days. patient is hypertensive, vitals are otherwise WNL. He is generally well-appearing and in no acute distress. Please see above exam photos. On exam, there is a small wound to the dorsal webbed space between left 1st and 2nd digits with with surrounding erythema extending to wrist and PIP of left 2nd digit. warm, ttp. no palpable crepitus. There is streaking up the left upper extremity to approximately mid upper arm. pain with active/passive motion of the L wrist. he has pain with axial loading. erythema marked with skin pen. Differential diagnosis includes cellulitis, lymphangitis, septic joint, septic arthritis, necrotizing fasciitis, streptococcal skin infection Plan for labs, lactic/blood cultures, imaging, viral swabs. Differential Diagnosis Differential Diagnoses: The differential diagnosis associated with the presentation includes as above. Admission/Observation Consideration of admission/observation: Escalation of care including admission/observation considered Patient admitted to medicine for cellulitis and lymphangitis requiring IV antibiotics. Consult Healthcare Provider Management of the patient was discussed with: Hospitalist and Rn Urology ID - Dr. Shania dangelo/ dr. rowan Hospitalist - dr. canas Lab Data [facility] Lab Attestation statement: I reviewed the patient's lab results. as above. 01/22/25 06:25 01/22/25 06:25 Labs: Lab Results 01/22/25 01/22/25 01/22/25 Range/Units 06:24 06:25 09:32 WBC 18.0 H (4.8-10.8) X10*3/uL RBC 4.68 (4.60-5.80) X10*6/uL Hgb 13.8 L (14.0-18.0) g/dl Hct 40.7 L (42.0-52.0) % MCV 87.0 (80.0-98.0) fL MCH 29.5 (27.0-33.0) pg MCHC 33.9 (31.0-36.0) g/dl RDW 13.1 (11.0-16.0) % Plt Count 316 (160-400) X10*3/uL MPV 10.2 (9.4-12.4) fL Immature Gran % (Auto) 0.6 H (0.0-0.4) % Neut % (Auto) 78.9 H (45-73) % Lymph % (Auto) 8.2 L (20-40) % [place] % (Auto) 11.7 H (2-11) % Eos % (Auto) 0.1 (0-4) % Baso % (Auto) 0.5 (0-2) % Lymph # (Auto) 1.5 (1.2-4.9) X10*3/uL [place] # (Auto) 2.1 H (0.1-1.2) X10*3/uL Eos # (Auto) 0.0 (0.0-0.4) X10*3/uL Baso # (Auto) 0.1 (0.0-0.2) X10*3/uL Abs Immat Gran (auto) 0.10 H (0.00-0.03) X10*3/uL Absolute Neuts (auto) 14.2 H (2.0-8.3) x10*3/uL Absolute Nucleated RBC 0.000 (0.0-0.012) X10*3/uL Nucleated RBC % (auto) 0.0 (0.0-0.2) /100WBC Smear Tech's Comments VERIFIED ESR 18 (1-20) MM/HR Sodium 136 (135-145) mmol/L Potassium 3.9 D (3.3-5.1) mmol/L Chloride 104 (96-108) mmol/L Carbon Dioxide 22 (22-29) mmol/L Anion Gap 14 (12-20) BUN 19 H (9-16) mg/dL Creatinine 0.88 (0.5-1.4) mg/dL Estim Creat Clear Calc 116.1 Estimated GFR > 60 Random Glucose 131 H (60-115) mg/dL Lactic Acid 1.1 (0.5-2.0) mmol/L Calcium 9.1 (8.4-10.2) mg/dL Total Bilirubin 0.7 (0.0-1.0) mg/dL AST 25 (5-37) U/L ALT 25 (0-40) U/L Alkaline Phosphatase 74 (39-117) U/L C-Reactive Protein 15.27 H (< or = 0.50) mg/dL Total Protein 7.0 (6.5-8.0) g/dL Albumin 4.4 (3.5-5.0) g/dL Hepatitis A IgM Ab Nonreactive (Nonreactive) Hep Bs Antibody NONREACTIVE (Nonreactive) Hep B Core Total Ab Nonreactive (Nonreactive) Hepatitis C Ab (EIA) Nonreactive (Nonreactive) HIV 1&2 Ab/P24 Ag 4thGn Nonreactive (Nonreactive) Influenza Type A (PCR) NEGATIVE (Negative) Influenza Type B (PCR) NEGATIVE (Negative) RSV RNA Qual (PCR) NEGATIVE (Negative) SARS-CoV-2 RNA (RT-PCR) NEGATIVE (Negative) Independent Interpretation I performed an independent interpretation of an: Plain X-Ray Interpretation: cxr without infiltrate or consolidation xr L hand/wrist without SQ gas Radiology Impression Discussion of test interpretation with radiology: I have reviewed the radiologist's reading. Radiologist Impression: Procedure(s): XR chest 2V Accession Number(s): [id number] cc: Musa Miner MD; Kelsy Rivera~ Reason for Exam: cough, sob CLINICAL HISTORY: cough, sob 2 view chest x-ray. Comparison: None Findings: The lungs are adequately expanded. No focal consolidation. No effusion or pneumothorax. Cardiac and mediastinal contours are within normal limits. No acute osseous abnormality Impression: No acute process. This document has been electronically signed by: Sterling Gil MD on 01/22/2025 08:09:18 Procedure(s): XR wrist LT min 3V Accession Number(s): [id number] cc: Musa Miner MD; Kelsy Rivera~ Reason for Exam: overlying infection EXAMINATION: XR WRIST 3 OR MORE VIEWS LEFT, XR HAND 3 OR MORE VIEWS LEFT HISTORY: overlying infection COMPARISON: There are no prior studies available for comparison. FINDINGS: Six views of the left hand and wrist are submitted. Osseous mineralization is normal. There is no fracture or dislocation. 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 There is soft tissue swelling of the thenar eminence and dorsum of the hand. XR/XR wrist LT min 3V IMPRESSION: Soft tissue swelling of the thenar eminence and dorsum of the hand. No plain film evidence of osteomyelitis. If this remains a clinical concern, three-phase bone scan or MRI could be performed. Electronically signed by: Michael Lovelace MD 01/22/2025 08:00 AM EST RP Procedure(s): XR hand LT min 3V Accession Number(s): [id number] cc: Musa Miner MD; Kelsy Rivera~ Reason for Exam: overlying cellulitis EXAMINATION: XR WRIST 3 OR MORE VIEWS LEFT, XR HAND 3 OR MORE VIEWS LEFT HISTORY: overlying infection COMPARISON: There are no prior studies available for comparison. FINDINGS: Six views of the left hand and wrist are submitted. Osseous mineralization is normal. There is no fracture or dislocation. 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 There is soft tissue swelling of the thenar eminence and dorsum of the hand. XR/XR hand LT min 3V IMPRESSION: Soft tissue swelling of the thenar eminence and dorsum of the hand. No plain film evidence of osteomyelitis. If this remains a clinical concern, three-phase bone scan or MRI could be performed. Electronically signed by: Michael Lovelace MD 01/22/2025 08:00 AM EST RP External Record Review External record reviewed: Inpatient record Prescription Management I considered prescription management with: Pain Medication and Antibiotic Chronic Conditions Patient?s care impacted by: Hypertension Social Determinants Patient?s care significantly limited by Social Determinants of Health including: Other Social Determinant of Health Critical Care Time Critical Care Time Critical Care Time: Yes Total Critical Care Time: 45 Attestation: Critical care time in the amount of 45 minutes has been provided to the patient in terms of direct patient care, frequent reevaluation, consultation with ID, hand surgery, and hospitalist, review and interpretation of medical data and results, and management of potentially life-threatening conditions. This is all outside of any medical procedures. Discharge Plan Discharge Clinical Impression: Cellulitis of left hand, Acute lymphangitis of left upper extremity Patient Disposition: Admitted As Inpatient
[2025-01-22] MEDS: Diphth,Pertus(ACell),Tet Adult 0.5 ML SYRINGE IM (08:40)
[2025-01-22] MEDS: cefEPime HCl/D5W 2 GM/50 ML PIGGYBACK IV ×2 (09:01→18:05)
[2025-01-22] MEDS: vancomycin/NS 2,000 MG/500 ML PLAST..BAG 250 MG IV (09:57)
[2025-01-22 10:17] LABS: HBS Num1 0.33 mIU/mL (0-7.99); HBc Num1 0.11 S/CO (0.00-0.79); HIV Num 1 0.08 S/CO (0.00-0.99); Hepatitis A Antibody IgM 0.19 Index (0-0.79); ~HepC Num1 0.14 S/CO (0.00-0.79); ~Hepatitis A Antibody IgM Nonreactive (Nonreactive); ~Hepatitis B Surface Antibody NONREACTIVE (Nonreactive); ~Hepatitis C Antibody Nonreactive (Nonreactive)
--- NOTE | 2025-01-22 10:36 | PC.NURSE ---
Left arm remains very swolle, warm, red. periphery marked iwth skin marker. C/o headache and left hand pain. pain meds requested ofprovider. awaits admission
--- NOTE | 2025-01-22 11:34 | PM.IMHP ---
History of Present Illness Date of Service: 01/22/25 Attending physician on admission: Richard Laguerre Chief Complaint: Left hand pain and swelling Pt is a 64-year-old male with a PMH significant for?HTN and HLD who presents to the ED with?left hand and wrist swelling, redness, and pain x1 day. 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 At the time no significant cut or bleeding and the pt felt very little of it. Later on Tuesday pt began having fever and chills which he initially attributed to a cold. This morning, however pt noticed significant redness, swelling, and pain in his left hand with red streaks running up his arm which prompted his visit to the ED. Also complains of headache and reduced appetite. No nausea, vomiting, or abdominal pain. In the ED pt was hypertensive up to 166/83, vitals otherwise stable and WNL. Labs were significant for leukocytosis of 18.0, ESR 18 but CRP 15.27. Left hand and wrist x-ray showed soft tissue swelling of thenar eminence and dorsum of hand without evidence of osteomyelitis. CXR without acute process Pt was treated in the ED with morphine, to look acetaminophen, IVF, cefepime, vancomycin, and clindamycin. Pt is admitted to the hospital for treatment and further evaluation of left hand cellulitis requiring IV antibiotics. Review of Systems Review of Systems: Negative except for that which is stated in the HPI. [facility] Medical History Chronic lower back pain Chronic right shoulder pain Arthritis HTN (hypertension) Family History Mother No problems noted. Father High blood pressure Surgical History S/P knee surgery Social History Housing: House Alcohol intake: current Alcohol intake frequency: a few times a month Alcohol type: beer Patient Tobacco Use Status: Never used Tobacco Advance Directives: No Advance Directives Information Provided: Yes service: No Current occupational status: employed Current occupation: [employer] - envi[employer] Current occupational exposures/hazards: No Cognitive needs: No Hearing needs: No Vision needs: No Meds Allergies Allergy/AdvReac Type Severity Reaction Status Date / Time Penicillins AdvReac Hives Verified 01/22/25 05:48 Home Medications ?Medication ?Instructions ?Recorded ?Confirmed ?Last Taken ?Type labetalol 200 mg tablet 100 mg PO QID 01/22/25 01/22/25 01/21/25 History Physical Exam Vital Signs and Narrative: Vital Signs: Last Vital Signs Temp 98.6 F 01/22/25 10:33 Pulse 85 01/22/25 10:33 Resp 18 01/22/25 10:33 BP 153/81 H 01/22/25 10:33 Pulse Ox 97 01/22/25 10:33 O2 Del Method Room Air 01/22/25 10:33 BMI result Body Mass Index 36.6 General: AOx3, no acute distress Resp: CTA bilaterally CVS: S1, S2, RRR GI: +BS, NT, no distention Skin: Warm, dry Neuro: Cranial nerves II-XII grossly intact bilaterally. Motor grossly intact bilaterally Extremities: Left hand with swelling, erythema, warmth, and reduced ROM secondary to pain. Small puncture wound in webbing between 1st and 2nd digit. As pictured below. Psych: Appropriate affect Results Labs 01/22/25 06:25 01/22/25 06:25 Labs: Laboratory Results - last 24 hr 01/22/25 01/22/25 01/22/25 06:24 06:25 09:32 MCV 87.0 MCH 29.5 MCHC 33.9 RDW 13.1 Plt Count 316 MPV 10.2 Immature Gran % (Auto) 0.6 H Neut % (Auto) 78.9 H Lymph % (Auto) 8.2 L [place] % (Auto) 11.7 H Eos % (Auto) 0.1 Baso % (Auto) 0.5 Lymph # (Auto) 1.5 [place] # (Auto) 2.1 H Eos # (Auto) 0.0 Baso # (Auto) 0.1 Abs Immat Gran (auto) 0.10 H Absolute Neuts (auto) 14.2 H Absolute Nucleated RBC 0.000 Nucleated RBC % (auto) 0.0 Smear Tech's Comments VERIFIED ESR 18 Anion Gap 14 Estim Creat Clear Calc 116.1 Estimated GFR > 60 Random Glucose 131 H Lactic Acid 1.1 Calcium 9.1 Total Bilirubin 0.7 AST 25 ALT 25 Alkaline Phosphatase 74 C-Reactive Protein 15.27 H Total Protein 7.0 Albumin 4.4 Hepatitis A IgM Ab Nonreactive Hep Bs Antibody NONREACTIVE Hep B Core Total Ab Nonreactive Hepatitis C Ab (EIA) Nonreactive HIV 1&2 Ab/P24 Ag 4thGn Nonreactive Influenza Type A (PCR) NEGATIVE Influenza Type B (PCR) NEGATIVE RSV RNA Qual (PCR) NEGATIVE SARS-CoV-2 RNA (RT-PCR) NEGATIVE Imaging Radiologist's Impressions: Impressions Hand X-Ray 01/22/25 07:47 IMPRESSION: Soft tissue swelling of the thenar eminence and dorsum of the hand. No plain film evidence of osteomyelitis. If this remains a clinical concern, three-phase bone scan or MRI could be performed. Electronically signed by: Michael Lovelace MD 01/22/2025 08:00 AM Free Flow Power RP Wrist X-Ray 01/22/25 07:48 IMPRESSION: Soft tissue swelling of the thenar eminence and dorsum of the hand. No plain film evidence of osteomyelitis. If this remains a clinical concern, three-phase bone scan or MRI could be performed. Electronically signed by: Michael Lovelace MD 01/22/2025 08:00 AM Free Flow Power RP Assessment and Plan (1) Cellulitis of left hand: Status: Acute Plan Pt is a 64-year-old male with a PMH significant for?HTN and HLD who presents to the ED with?left hand and wrist swelling, redness, and pain x1 day. 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 Pt is admitted to the hospital for treatment and further evaluation of left hand cellulitis requiring IV antibiotics. Left hand and forearm cellulitis Secondary to puncture wound while working in hospital kitchen on morning of 01/20 Rapid progression of cellulitis today in <4 hours Leukocytosis, subjective fevers at home; no hypotension or lactic acidosis Left hand and wrist x-ray showed soft tissue swelling of the thenar eminence and dorsum of the hand without evidence of osteomyelitis. Infectious disease consult, recommend cefepime, vanc, and clindamycin, started Ortho consulted, no surgical intervention at this time Analgesics for pain management HTN Continue amlodipine, clonidine, and labetalol HLD Continue statin Chronic musculoskeletal pain Continue tramadol p.r.n. Full Code Attending:?Dr. Laguerre DVT Prophylaxis: Lovenox Pt will require a hospitalization of at least two nights for treatment of?rapidly progressing left hand and forearm cellulitis that requires IV antibiotics and specialist consultation with Orthopedics and Infectious Disease for close monitoring. Quality Stroke Does the patient have a stroke diagnosis?: No VTE Prior VTE?: No VTE Risk Level:: Medical - moderate - high VTE Device Contraindication: Treatment Not Indicated VTE Drug Contraindication: N/A - Med Ordered
--- NOTE | 2025-01-22 11:45 | PHA.MEDREC ---
Addendum entered by Sherrie Walker RPh 01/22/25 11:58: Reviewed by [facility] Original Note: Pharmacy Consult ? Medication Reconciliation Pharmacy has completed the medication reconciliation. Spoke with pt and spouse, over the phone. Pt spouse confirmed the pt medications except for Atorvastatin (pt spouse not sure about that one and pt was able to confirm he takes that); Pt taking Labetolol 200mg tabs 1/2 tabs (100mg) QID instead of 200mg BID due to pt developing headaches when taking the full 200mg tab.
--- NOTE | 2025-01-22 16:13 | HO.NURTONUR ---
Pt accidentally nicked left hand with chisel while cleaning at work aprox 4 days ago. [place] Chills and was diaphoretic at home for last 3 days. Swelling/reddness/tracking left hand started yesterday. Left hand is very swollen. Tracking up past A/C periphery of reddness marked with skin marker aprox 1p on 01/22. Pt has needed pain meds for left hand pain, headaches. resp swab, CXR Neg. Hand imaging shows no osteo.
[2025-01-22 19:49] LABS: Cannabinoid Screen Urine Not Detected (Not Detect)
[2025-01-23] MEDS: cefEPime HCl/D5W 2 GM/50 ML PIGGYBACK IV ×3 (00:33→16:40)
[2025-01-23 00:53] VITALS: TEMP 37
[2025-01-23 03:44] VITALS: BP 120/63; PULSE 76; RESP 20; TEMP 36.3; O2SAT 93
[2025-01-23 07:17] LABS: Blood Urea Nitrogen 15 mg/dL (9-16); Calcium 9.1 mg/dL (8.4-10.2); Creatinine Clr Calc Pharmacy 120.5; Estimated Glomerular Filt Rate > 60
[2025-01-23 07:19] LABS: Hematocrit 40.0 % (42.0-52.0); Hemoglobin 13.7 g/dl (14.0-18.0); Mean Corpuscular HGB Conc 34.3 g/dl (31.0-36.0); Mean Corpuscular Hemoglobin 30.4 pg (27.0-33.0); Mean Corpuscular Volume 88.7 fL (80.0-98.0); NRBC Abs Auto 0.000 X10*3/uL (0.0-0.012); NRBC Pct Auto 0.0 /100WBC (0.0-0.2); PLT CLUMP 1; Red Blood Count 4.51 X10*6/uL (4.60-5.80); White Blood Count 19.0 X10*3/uL (4.8-10.8)
[2025-01-23 07:39] LABS: Anion Gap 21 (12-20); Carbon Dioxide 15 mmol/L (22-29); Chloride 104 mmol/L (96-108); Potassium 4.9 mmol/L (3.3-5.1); Sodium 135 mmol/L (135-145)
[2025-01-23 07:47] VITALS: BP 140/87; PULSE 86; RESP 20; TEMP 37.2; O2SAT 95
--- NOTE | 2025-01-23 08:38 | PM.PNORT ---
Subjective Subjective Date of Service: 01/23/25 Interval history: Admission day 1 for left hand cellulitis, swelling, and lymphangitis extending up into the proximal arm Patient reports that the redness and swelling he experienced in the forearm and proximal arm has improved since yesterday However, the patient does report slight worsening in the pain in his left hand since yesterday, and reports that the redness in the left hand has progressed very slightly past previous margins Denies numbness or tingling in the left hand No other acute complaints or concerns at this time Physical Exam Vital Signs: Vital Signs: Last Vital Signs Temp 98.9 F 01/23/25 07:47 Pulse 86 01/23/25 07:47 Resp 20 01/23/25 07:47 BP 140/87 H 01/23/25 07:47 Pulse Ox 95 01/23/25 07:47 O2 Del Method Room Air 01/23/25 07:47 BMI result Body Mass Index 36.8 Extrem: Other: Patient is alert, oriented, and in no acute distress. Neuro: Normal sensation of the tips of all digits of the left hand at this time Vascular: Cap refill brisk Pain: Very minimal tenderness to palpation about area of lymphangitis on left forearm and proximal arm Opet-[id number] tenderness to palpation in dorsal left hand, worst in the 1st webspace ROM: Patient is able to flex and extend all digits of the left hand, isn't able to make a closed fist, likely due to swelling Skin: There are 2 small wounds noted in the dorsal 1st webspace of the left hand from known injury Significant edema in the 1st webspace of the left hand, more firm in the dorsal aspect but soft and volar Wounds are dried over, no drainage at this time General: Significant erythema about the dorsal and volar aspects of the left hand, worst in the area of the 1st webspace Redness has spread slightly on the dorsal aspect of the left hand There is some mild erythema that extends into the forearm and proximal arm, this has light and significantly since yesterday and also is well within the borders drawn yesterday Psych: Appears grossly normal Affect normal Attitude cooperative Procedures Date of Service Date of Service: 01/23/25 Progress Note: A&P Assessment and plan (1) Acute lymphangitis of left upper extremity: Status: Acute (2) Cellulitis of left hand: Status: Acute Plan 1. Left hand cellulitis, swelling, pain With lymphangitic spread into the left forearm and proximal arm Continue IV antibiotics Due to slightly increasing redness and increasing pain from yesterday, I do feel it is best to make the patient NPO at midnight pending evaluation tomorrow, as I think he might be developing an abscess in the 1st webspace of the left hand NPO at midnight Would encourage any range of motion the patient is capable of performing in the left hand, wrist, and elbow Patient understands this in his amenable to this plan Time Spent With Patient Time: Total time managing care of this patient today ____ minutes. Quality Stroke Does the patient have a stroke diagnosis?: No VTE Prior VTE?: No VTE Risk Level:: Medical - moderate - high VTE Device Contraindication: Treatment Not Indicated VTE Drug Contraindication: N/A - Med Ordered
--- NOTE | 2025-01-23 08:41 | HE.PHANOTE ---
Addendum entered by Tim BegumD 01/23/25 08:51: NEXT TROUGH DUE 01/24 @0800 NOT @1999 Original Note: RE: VANCO Trough returned @6.7 (after 2 doses). Will increase dose to 1250 mg Q8H with predicted AUC 455 and trough 13.2 to ensure efficacy. Next trough due 01/24 @1999.
--- NOTE | 2025-01-23 09:56 | MHC.CM.PN ---
Patient lives in a home w/ , adult daughter and 3YO granddaughter. Independent w/ all care. +working/driving. Denies use of services or DME. PCP Dr Miner No HCP. CM provided education, offered assistance. Patient declined at this time. DP: Home self care. If wound care is needed, daughter can assist. Family transport. CM will continue to follow.
--- NOTE | 2025-01-23 09:59 | HO.ANESPROP2 ---
Documented by User: Yenifer Alexander NP 01/23/25 10:00 HPI - Anesthesia Eval Consult details Narrative: 64 yr old male for left hand I&D Admitted for rapidly spreading cellulitis 2/2 [facility] [place] work injury. Chronic back pain: on tramadol chronically PMFSH Active Problems Active Problems: All Active Problems (Updated 01/22/25 @ 10:53 by INEZ Garza) Acute lymphangitis of left upper extremity (Acute) Cellulitis of left hand (Acute) Chronic prescription opiate use (Acute) Vitamin D deficiency (Acute) Screening for prostate cancer (Acute) HTN (hypertension) (Acute) Chronic right shoulder pain (Acute) Chronic lower back pain (Acute) Physical exam (Acute) Hyperlipidemia (Acute) Past Medical History Medical History Chronic lower back pain Chronic right shoulder pain Arthritis HTN (hypertension) Family History Family History Mother No problems noted. Father High blood pressure Surgical History Surgical History S/P knee surgery Social History Social History Household Members: Spouse Housing: House Do you presently have visiting nurse or other home services: No Alcohol intake: current Alcohol intake frequency: a few times a month Alcohol type: beer Patient Tobacco Use Status: Never used Tobacco Currently Displaying Signs/Symptoms of Drug Intoxication Withdrawal: No Have you been hit, kicked, punched, or otherwise hurt by someone within the past year? 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 Current occupational exposures/hazards: No Cognitive needs: No Hearing needs: No Vision needs: No Meds Allergies Allergy/AdvReac Type Severity Reaction Status Date / Time Penicillins AdvReac Hives Verified 01/22/25 05:48 Active Medications: Current Medications Acetaminophen (Acetaminophen 325 Mg Tablet) 650 mg PO Q6H PRN PRN Reason: Pain, Mild 1-3,fever,headache Last Admin: 01/23/25 09:46 Dose: 650 mg Amlodipine Besylate (Amlodipine Besylate 5 Mg Tablet) 5 mg PO DAILY [facility]; Protocol Last Admin: 01/23/25 08:05 Dose: 5 mg Atorvastatin Calcium (Atorvastatin Calcium 10 Mg Tablet) 10 mg PO BEDTIME LATISHA Last Admin: 01/22/25 20:17 Dose: 10 mg Calcium Carbonate (Calcium Carbonate 750 Mg Tab.Chew) 750 mg PO Q4H PRN PRN Reason: Heartburn Clonidine HCl (Clonidine Hcl 0.1 Mg Tablet) 0.3 mg PO BID [facility]; Protocol Last Admin: 01/23/25 08:05 Dose: 0.3 mg Enoxaparin Sodium (Enoxaparin Sodium 40 Mg/0.4 Ml Syringe) 40 mg SUBCUT Q24H LATISHA Last Admin: 01/22/25 14:51 Dose: 40 mg Clindamycin Phosphate (Cleocin) 600 mg in 50 mls @ 100 mls/hr IV Q8H [facility] Last Infusion: 01/23/25 04:58 Dose: Infused Cefepime HCl (Maxipime) 2 gm in 50 mls @ 100 mls/hr IV Q8H [facility] Last Infusion: 01/23/25 08:40 Dose: Infused Vancomycin HCl 1,250 mg/ (Sodium Chloride) 250 mls @ 166.667 mls/hr IV Q8H [facility] Last Admin: 01/23/25 09:50 Dose: 166.67 mls/hr Labetalol HCl (Labetalol Hcl 100 Mg Tablet) 100 mg PO QID [facility]; Protocol Last Admin: 01/23/25 08:05 Dose: 100 mg Magnesium Hydroxide (Milk Of Magnesia 30 Ml Oral.Susp) 30 ml PO DAILY PRN PRN Reason: Constipation Melatonin (Melatonin 3 Mg Tablet) 6 mg PO BEDTIME PRN PRN Reason: Insomnia Morphine Sulfate (Morphine Sulfate 4 Mg/Ml Cartridge) 4 mg IVPUSH Q4H PRN; Protocol PRN Reason: Pain, Severe (Pain Scale 7-10) Last Admin: 01/23/25 05:02 Dose: 4 mg Ondansetron HCl (Ondansetron Hcl 4 Mg/2 Ml Vial) 4 mg IVPUSH Q8H PRN PRN Reason: Nausea and Vomiting Last Admin: 01/22/25 19:28 Dose: 4 mg Pharmacy Consult (Consult Rx Vancomycin Dosing) 1 each MISCELLANE DAILY PRN PRN Reason: Consult order Sodium Chloride (0.9 % Sodium Chloride Flush 3 Ml Syringe) 3 ml IVFLUSH QSHIFT [facility] Last Admin: 01/23/25 08:04 Dose: Not Given Tramadol HCl (Tramadol Hcl 50 Mg Tablet) 50 mg PO QID PRN PRN Reason: Pain, Moderate(Pain Scale 4-6) Last Admin: 01/23/25 09:46 Dose: 50 mg Home Medications ?Medication ?Instructions ?Recorded ?Confirmed ?Last Taken ?Type labetalol 200 mg tablet 100 mg PO QID 01/22/25 01/22/25 01/21/25 History Exam Height,Weight and Vital Signs: Height 6 ft Weight 123.2 kg Last Vital Signs Temp 98.9 F 01/23/25 07:47 Pulse 86 01/23/25 07:47 Resp 20 01/23/25 07:47 BP 140/87 H 01/23/25 07:47 Pulse Ox 95 01/23/25 07:47 O2 Del Method Room Air 01/23/25 07:47 Pertinent Lab Results Pertinent Lab Results: Laboratory Tests 01/22/25 01/22/25 01/22/25 06:24 06:25 09:32 WBC 18.0 H RBC 4.68 Hgb 13.8 L Hct 40.7 L MCV 87.0 MCH 29.5 MCHC 33.9 RDW 13.1 Plt Count 316 MPV 10.2 Immature Gran % (Auto) 0.6 H Neut % (Auto) 78.9 H Lymph % (Auto) 8.2 L Andrews % (Auto) 11.7 H Eos % (Auto) 0.1 Baso % (Auto) 0.5 Lymph # (Auto) 1.5 Andrews # (Auto) 2.1 H Eos # (Auto) 0.0 Baso # (Auto) 0.1 Abs Immat Gran (auto) 0.10 H Absolute Neuts (auto) 14.2 H Absolute Nucleated RBC 0.000 Nucleated RBC % (auto) 0.0 Smear Tech's Comments VERIFIED ESR 18 Sodium 136 Potassium 3.9 D Chloride 104 Carbon Dioxide 22 Anion Gap 14 BUN 19 H Creatinine 0.88 Estim Creat Clear Calc 116.1 Estimated GFR > 60 Random Glucose 131 H Lactic Acid 1.1 Calcium 9.1 Total Bilirubin 0.7 AST 25 ALT 25 Alkaline Phosphatase 74 C-Reactive Protein 15.27 H Total Protein 7.0 Albumin 4.4 Random Vancomycin Urine Opiates Screen Ur Buprenorphine Scrn Ur Oxycodone Screen Urine Methadone Screen Urine Fentanyl Screen Ur Barbiturates Screen Ur Phencyclidine Scrn Ur Amphetamines Screen U Benzodiazepines Scrn Urine Cocaine Screen U Marijuana (THC) Screen Hepatitis A IgM Ab Nonreactive Hep Bs Antibody NONREACTIVE Hep B Core Total Ab Nonreactive Hepatitis C Ab (EIA) Nonreactive HIV 1&2 Ab/P24 Ag 4thGn Nonreactive Influenza Type A (PCR) NEGATIVE Influenza Type B (PCR) NEGATIVE RSV RNA Qual (PCR) NEGATIVE SARS-CoV-2 RNA (RT-PCR) NEGATIVE 01/22/25 01/23/25 01/23/25 Unknown 06:09 07:50 WBC 19.0 H RBC 4.51 L Hgb 13.7 L Hct 40.0 L MCV 88.7 MCH 30.4 MCHC 34.3 RDW 13.7 Plt Count TNP MPV TNP Immature Gran % (Auto) Neut % (Auto) Lymph % (Auto) Andrews % (Auto) Eos % (Auto) Baso % (Auto) Lymph # (Auto) Andrews # (Auto) Eos # (Auto) Baso # (Auto) Abs Immat Gran (auto) Absolute Neuts (auto) Absolute Nucleated RBC 0.000 Nucleated RBC % (auto) 0.0 Smear Tech's Comments ESR Sodium 135 Potassium 4.9 D Chloride 104 Carbon Dioxide 15 L Anion Gap 21 H BUN 15 Creatinine 0.85 Estim Creat Clear Calc 120.5 Estimated GFR > 60 Random Glucose 121 H Lactic Acid Calcium 9.1 Total Bilirubin AST ALT Alkaline Phosphatase C-Reactive Protein Total Protein Albumin Random Vancomycin 6.7 L Urine Opiates Screen POSITIVE H Ur Buprenorphine Scrn Not Detected Ur Oxycodone Screen Not Detected Urine Methadone Screen Not Detected Urine Fentanyl Screen Not Detected Ur Barbiturates Screen Not Detected Ur Phencyclidine Scrn Not Detected Ur Amphetamines Screen Not Detected U Benzodiazepines Scrn Not Detected Urine Cocaine Screen Not Detected U Marijuana (THC) Screen Not Detected Hepatitis A IgM Ab Hep Bs Antibody Hep B Core Total Ab Hepatitis C Ab (EIA) HIV 1&2 Ab/P24 Ag 4thGn Influenza Type A (PCR) Influenza Type B (PCR) RSV RNA Qual (PCR) SARS-CoV-2 RNA (RT-PCR) Documented by User: Alex Lauren MD 01/24/25 12:10 [facility] Past Medical History Medical History Chronic lower back pain Chronic right shoulder pain Arthritis HTN (hypertension) Cognitive capacity: normal Functional capacity: independent ambulation Family History Family History Mother No problems noted. Father High blood pressure Family history of problems with anesthesia: No Surgical History Surgical History S/P knee surgery History of Problems with Anesthesia: No Social History Social History Household Members: Spouse Housing: House Do you presently have visiting nurse or other home services: No Alcohol intake: current Alcohol intake frequency: a few times a month Alcohol type: beer Patient Tobacco Use Status: Never used Tobacco Currently Displaying Signs/Symptoms of Drug Intoxication Withdrawal: No Have you been hit, kicked, punched, or otherwise hurt by someone within the past year? 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: [employer] - en[employer] Current occupational exposures/hazards: No Cognitive needs: No Hearing needs: No Vision needs: No Meds Allergies Allergy/AdvReac Type Severity Reaction Status Date / Time Penicillins AdvReac Hives Verified 01/22/25 05:48 Home Medications ?Medication ?Instructions ?Recorded ?Confirmed ?Last Taken ?Type labetalol 200 mg tablet 100 mg PO QID 01/22/25 01/22/25 01/21/25 History Exam Exam Date and Time: 01/24/2025 Airway TM Dist: >3cm Neck ROM: Full Heart: normal Lungs: normal Other: normal Assessment and Plan Assessment Anesthesia Assessment: Anesthesia Plan Discussed, Smoking Cess. Discussed and Chart Reviewed Final Anesthetic Review Family History of Problems with Anesthesia: No History of Problems with Anesthesia: No NPO: Yes ASA Class: III Final Preanesthetic Review: No Changes in Pt Med Stat, Meds/Allgs Chart Reviewed, Consent Obtained/Reviewed and Anes Risks/Benef Reviewed Patient Risk: Intermediate Procedure Risk: Low Anesthetic Plan Anesthetic Plan: GA Disposition: Standard PACU
[2025-01-23 12:33] VITALS: BP 111/61; PULSE 71
--- NOTE | 2025-01-23 12:58 | HO.PM.IMPN ---
Subjective Subjective Date of Service: 01/23/25 Interval History: Follow up for Left hand and forearm cellulitis. Redness in forearm improved, but swelling, pain, and erythema worse in hand No n/v/d Has been eating and drinking OK Ortho plans for washout in the morning Review of Systems Review of Systems: Yes all other systems are reviewed and are negative Physical Exam Exam: Exam: General: AOx3, no acute distress Resp: CTA bilaterally CVS: S1, S2, RRR GI: +BS, NT, no distention Skin: Warm, dry Neuro: Cranial nerves II-XII grossly intact bilaterally. Motor grossly intact bilaterally Extremities: Left forearm with improved erythema and warmth. Left hand and wrist with swelling, warmth, and erythema slightly worsened, as pictured below. Psych: Appropriate affect Vital Signs: Vital Signs: Last Vital Signs Temp 98.9 F 01/23/25 07:47 Pulse 71 01/23/25 12:33 Resp 20 01/23/25 07:47 BP 111/61 01/23/25 12:33 Pulse Ox 95 01/23/25 07:47 O2 Del Method Room Air 01/23/25 07:47 BMI result Body Mass Index 36.8 Objective Data Active Medications Acetaminophen (Acetaminophen 325 Mg Tablet) 650 mg PO Q6H PRN PRN Reason: Pain, Mild 1-3,fever,headache Last Admin: 01/23/25 09:46 Dose: 650 mg Documented By: BEE Amlodipine Besylate (Amlodipine Besylate 5 Mg Tablet) 5 mg PO DAILY [facility]; Protocol Last Admin: 01/23/25 08:05 Dose: 5 mg Documented By: BEE Atorvastatin Calcium (Atorvastatin Calcium 10 Mg Tablet) 10 mg PO BEDTIME LATISHA Last Admin: 01/22/25 20:17 Dose: 10 mg Documented By: LEFEBVA Calcium Carbonate (Calcium Carbonate 750 Mg Tab.Chew) 750 mg PO Q4H PRN PRN Reason: Heartburn Clonidine HCl (Clonidine Hcl 0.1 Mg Tablet) 0.3 mg PO BID [facility]; Protocol Last Admin: 01/23/25 08:05 Dose: 0.3 mg Documented By: BEE Enoxaparin Sodium (Enoxaparin Sodium 40 Mg/0.4 Ml Syringe) 40 mg SUBCUT Q24H [facility] Last Admin: 01/22/25 14:51 Dose: 40 mg Documented By: KATJA Clindamycin Phosphate (Cleocin) 600 mg in 50 mls @ 100 mls/hr IV Q8H [facility] Last Admin: 01/23/25 12:34 Dose: 100 mls/hr Documented By: BEE Cefepime HCl (Maxipime) 2 gm in 50 mls @ 100 mls/hr IV Q8H [facility] Last Infusion: 01/23/25 08:40 Dose: Infused Documented By: BEE Vancomycin HCl 1,250 mg/ (Sodium Chloride) 250 mls @ 166.667 mls/hr IV Q8H [facility] Last Infusion: 01/23/25 11:22 Dose: Infused Documented By: BEE Labetalol HCl (Labetalol Hcl 100 Mg Tablet) 100 mg PO QID [facility]; Protocol Last Admin: 01/23/25 12:33 Dose: 100 mg Documented By: BEE Magnesium Hydroxide (Milk Of Magnesia 30 Ml Oral.Susp) 30 ml PO DAILY PRN PRN Reason: Constipation Melatonin (Melatonin 3 Mg Tablet) 6 mg PO BEDTIME PRN PRN Reason: Insomnia Morphine Sulfate (Morphine Sulfate 4 Mg/Ml Cartridge) 4 mg IVPUSH Q4H PRN; Protocol PRN Reason: Pain, Severe (Pain Scale 7-10) Last Admin: 01/23/25 05:02 Dose: 4 mg Documented By: PRICILA Ondansetron HCl (Ondansetron Hcl 4 Mg/2 Ml Vial) 4 mg IVPUSH Q8H PRN PRN Reason: Nausea and Vomiting Last Admin: 01/22/25 19:28 Dose: 4 mg Documented By: PRICILA Pharmacy Consult (Consult Rx Vancomycin Dosing) 1 each MISCELLANE DAILY PRN PRN Reason: Consult order Sodium Chloride (0.9 % Sodium Chloride Flush 3 Ml Syringe) 3 ml IVFLUSH [facility] Last Admin: 01/23/25 08:04 Dose: Not Given Documented By: BEE Non-Admin Reason: IV Running Tramadol HCl (Tramadol Hcl 50 Mg Tablet) 50 mg PO QID PRN PRN Reason: Pain, Moderate(Pain Scale 4-6) Last Admin: 01/23/25 09:46 Dose: 50 mg Documented By: BEE Labs 01/23/25 06:09 01/23/25 06:09 Labs: Laboratory Results - last 24 hr 01/22/25 01/23/25 01/23/25 Unknown 06:09 07:50 MCV 88.7 MCH 30.4 MCHC 34.3 RDW 13.7 Plt Count TNP MPV TNP Absolute Nucleated RBC 0.000 Nucleated RBC % (auto) 0.0 Anion Gap 21 H Estim Creat Clear Calc 120.5 Estimated GFR > 60 Random Glucose 121 H Calcium 9.1 Random Vancomycin 6.7 L Urine Opiates Screen POSITIVE H Ur Buprenorphine Scrn Not Detected Ur Oxycodone Screen Not Detected Urine Methadone Screen Not Detected Urine Fentanyl Screen Not Detected Ur Barbiturates Screen Not Detected Ur Phencyclidine Scrn Not Detected Ur Amphetamines Screen Not Detected U Benzodiazepines Scrn Not Detected Urine Cocaine Screen Not Detected U Marijuana (THC) Screen Not Detected Microbiology Microbiology Results: Microbiology 01/22/25 06:24 Blood Culture - Preliminary Blood - Venous No growth after 24 hours. 01/22/25 06:24 Blood Culture - Preliminary Blood - Venous No growth after 24 hours. Assessment and Plan (1) Cellulitis of left hand: Status: Acute Plan Pt is a 64-year-old male with a PMH significant for?HTN and HLD who presents to the ED with?left hand and wrist swelling, redness, and pain x1 day. 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 Pt is admitted to the hospital for treatment and further evaluation of left hand cellulitis requiring IV antibiotics. Left hand and forearm cellulitis with sepsis Secondary to puncture wound while working in hospital kitchen on morning of 01/20 Rapid progression of cellulitis on 01/22 in <4 hours Met sepsis criteria with fever and leukocytosis; no hypotension, lactic acidosis, or other severe features Left hand and wrist x-ray showed soft tissue swelling of the thenar eminence and dorsum of the hand without evidence of osteomyelitis. Infectious disease consult, recommend cefepime, vanc, and clindamycin, started 01/22 Ortho consulted, NPO past midnight with plans on surgical washout in the OR Analgesics for pain management HTN Continue amlodipine, clonidine, and labetalol HLD Continue statin Chronic musculoskeletal pain Continue tramadol p.r.n. Full Code Attending:?Dr. Laguerre DVT Prophylaxis: Lovenox Pt will need continued hospitalization for treatment and further evaluation of left hand cellulitis with sepsis requiring IV antibiotics and surgical washout in the OR tomorrow morning. Quality Stroke Does the patient have a stroke diagnosis?: No VTE Prior VTE?: No VTE Risk Level:: Medical - moderate - high VTE Device Contraindication: Treatment Not Indicated VTE Drug Contraindication: N/A - Med Ordered
[2025-01-23 15:43] VITALS: BP 139/76; PULSE 76; RESP 14; TEMP 37.1; O2SAT 96
[2025-01-23] MEDS: Butalb/Acetamin/Caff 50/325/40 TABLET 1 TAB PO (16:37)
[2025-01-23] MEDS: 0.9 % Sodium Chloride Flush 3 ML SYRINGE IVFLUSH ×2 (16:37→21:47)
[2025-01-23 19:23] VITALS: BP 115/57; PULSE 71; RESP 18; TEMP 35.9; O2SAT 94
--- NOTE | 2025-01-23 23:53 | W.PM.IDCN ---
History of Present Illness Data of Consult Service Date: 01/23/25 Requesting physician: Shamir Segal Primary Care Provider: Musa Miner MD [facility] Reason for consult: left hand erythema He presents with pain left pain and swelling four days He was scraping grout in hospital kitchen last week. He was seen by hand surgery. Review of Systems Review of Systems: Yes all other systems are reviewed and are negative [facility] Past Medical History Medical History Chronic lower back pain Chronic right shoulder pain Arthritis HTN (hypertension) Family History Family History Mother No problems noted. Father High blood pressure Family history: reviewed and not pertinent Surgical History Surgical History S/P knee surgery Social History Social History Household Members: Spouse Housing: House Do you presently have visiting nurse or other home services: No Alcohol intake: current Alcohol intake frequency: a few times a month Alcohol type: beer Patient Tobacco Use Status: Never used Tobacco Currently Displaying Signs/Symptoms of Drug Intoxication Withdrawal: No Have you been hit, kicked, punched, or otherwise hurt by someone within the past year? 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: [employer] - [employer] Current occupational exposures/hazards: No Cognitive needs: No Hearing needs: No Vision needs: No Meds Allergies Allergy/AdvReac Type Severity Reaction Status Date / Time Penicillins AdvReac Hives Verified 01/22/25 05:48 Active Medications: Current Medications Acetaminophen (Acetaminophen 325 Mg Tablet) 650 mg PO Q6H PRN PRN Reason: Pain, Mild 1-3,fever,headache Last Admin: 01/23/25 09:46 Dose: 650 mg Acetaminophen/Butalbital/Caffeine (Butalb/Acetamin/Caff 50/325/40 Tablet) 1 tab PO Q4H PRN PRN Reason: Headache Last Admin: 01/23/25 16:37 Dose: 1 tab Amlodipine Besylate (Amlodipine Besylate 5 Mg Tablet) 5 mg PO DAILY [facility]; Protocol Last Admin: 01/23/25 08:05 Dose: 5 mg Atorvastatin Calcium (Atorvastatin Calcium 10 Mg Tablet) 10 mg PO BEDTIME LATISHA Last Admin: 01/23/25 21:46 Dose: 10 mg Calcium Carbonate (Calcium Carbonate 750 Mg Tab.Chew) 750 mg PO Q4H PRN PRN Reason: Heartburn Clonidine HCl (Clonidine Hcl 0.1 Mg Tablet) 0.3 mg PO BID [facility]; Protocol Last Admin: 01/23/25 21:46 Dose: 0.3 mg Enoxaparin Sodium (Enoxaparin Sodium 40 Mg/0.4 Ml Syringe) 40 mg SUBCUT Q24H LATISHA Last Admin: 01/23/25 13:56 Dose: 40 mg Hydromorphone HCl (Hydromorphone Hcl 1 Mg/Ml Syringe) 0.5 mg IVPUSH Q4H PRN; Protocol PRN Reason: Pain, Severe (Pain Scale 7-10) Clindamycin Phosphate (Cleocin) 600 mg in 50 mls @ 100 mls/hr IV Q8H [facility] Last Infusion: 01/23/25 22:17 Dose: Infused Cefepime HCl (Maxipime) 2 gm in 50 mls @ 100 mls/hr IV Q8H [facility] Last Infusion: 01/23/25 17:12 Dose: Infused Vancomycin HCl 1,250 mg/ (Sodium Chloride) 250 mls @ 166.667 mls/hr IV Q8H [facility] Last Infusion: 01/23/25 19:00 Dose: Infused Labetalol HCl (Labetalol Hcl 100 Mg Tablet) 100 mg PO QID [facility]; Protocol Last Admin: 01/23/25 21:47 Dose: 100 mg Magnesium Hydroxide (Milk Of Magnesia 30 Ml Oral.Susp) 30 ml PO DAILY PRN PRN Reason: Constipation Melatonin (Melatonin 3 Mg Tablet) 6 mg PO BEDTIME PRN PRN Reason: Insomnia Ondansetron HCl (Ondansetron Hcl 4 Mg/2 Ml Vial) 4 mg IVPUSH Q8H PRN PRN Reason: Nausea and Vomiting Last Admin: 01/22/25 19:28 Dose: 4 mg Pharmacy Consult (Consult Rx Vancomycin Dosing) 1 each MISCELLANE DAILY PRN PRN Reason: Consult order Sodium Chloride (0.9 % Sodium Chloride Flush 3 Ml Syringe) 3 ml IVFLUSH QSHIFT [facility] Last Admin: 01/23/25 21:47 Dose: 3 ml Tramadol HCl (Tramadol Hcl 50 Mg Tablet) 50 mg PO QID PRN PRN Reason: Pain, Moderate(Pain Scale 4-6) Last Admin: 01/23/25 09:46 Dose: 50 mg Home Medications ?Medication ?Instructions ?Recorded ?Confirmed ?Last Taken ?Type labetalol 200 mg tablet 100 mg PO QID 01/22/25 01/22/25 01/21/25 History Physical Exam Vital Signs: Vital Signs: Last Vital Signs Temp 96.7 F L 01/23/25 19:23 Pulse 71 01/23/25 19:23 Resp 18 01/23/25 19:23 BP 115/57 L 01/23/25 19:23 Pulse Ox 94 01/23/25 19:23 O2 Del Method Room Air 01/23/25 19:23 BMI result Body Mass Index 36.8 Extrem: Other: swelling left hand extending up arm Results Labs 01/23/25 06:09 01/23/25 06:09 Labs: Short CBC 01/23/25 Range/Units 06:09 WBC 19.0 H (4.8-10.8) X10*3/uL Hgb 13.7 L (14.0-18.0) g/dl Hct 40.0 L (42.0-52.0) % Plt Count TNP BMP 01/23/25 06:09 Sodium 135 Potassium 4.9 D Chloride 104 Carbon Dioxide 15 L BUN 15 Creatinine 0.85 Calcium 9.1 Microbiology Microbiology Results: Microbiology 01/22/25 06:24 Blood - Venous Blood Culture - Preliminary No growth after 24 hours. 01/22/25 06:24 Blood - Venous Blood Culture - Preliminary No growth after 24 hours. Assessment and Plan (1) Cellulitis of left hand: Status: Acute (2) Acute lymphangitis of left upper extremity: Status: Acute Plan Agree with Clindamycin and Vancomycin Stop Cefepime May need drainage if abscess found hand. If no better tomorrow would switch to linezolid if not bacteremic.
[2025-01-24] VITALS (13 sets, daily range): BP systolic 105–135; BP diastolic 40–79; PULSE 60–76; RESP 15–18; TEMP 36.1–37.1; O2SAT 92–97
[2025-01-24] MEDS: cefEPime HCl/D5W 2 GM/50 ML PIGGYBACK IV ×3 (00:56→16:48)
--- NOTE | 2025-01-24 07:37 | PM.PNORT ---
Subjective Subjective Date of Service: 01/24/25 Interval history: Admission day 2 for left hand cellulitis, swelling, and lymphangitis extending up into the proximal arm Patient reports that the redness and swelling he experienced in the forearm and proximal arm has improved significantly since yesterday, and now there is only redness around the wound in the dorsal 1st webspace of the left hand However, the patient does report slight worsening in the pain in his left hand since yesterday Patient also reports some purulent drainage from this wound yesterday when the scab was dislodged Denies numbness or tingling in the left hand No other acute complaints or concerns at this time Physical Exam Vital Signs: Vital Signs: Last Vital Signs Temp 97.2 F 01/24/25 04:00 Pulse 60 01/24/25 04:00 Resp 18 01/24/25 04:00 BP 135/64 01/24/25 04:00 Pulse Ox 97 01/24/25 04:00 O2 Del Method Room Air 01/24/25 04:00 BMI result Body Mass Index 36.8 Extrem: Other: Patient is alert, oriented, and in no acute distress. Neuro: Normal sensation of the tips of all digits of the left hand at this time Vascular: Cap refill brisk Pain: No further tenderness to palpation about area of lymphangitis on left forearm and proximal arm [id number] tenderness to palpation in dorsal left hand, worst in the 1st webspace ROM: Patient is able to flex and extend all digits of the left hand, isn't able to make a closed fist, likely due to swelling Skin: There are 2 small wounds noted in the dorsal 1st webspace of the left hand from known injury Significant edema in the 1st webspace of the left hand, more firm in the dorsal aspect but soft and volar Wounds are dried over, no drainage at this time General: Significant erythema about the dorsal aspect of the left hand, worst in the area of the 1st webspace Redness has reduced in size significantly, but is more prominent than yesterday in the dorsal 1st webspace of the left hand Psych: Appears grossly normal Affect normal Attitude cooperative Procedures Date of Service Date of Service: 01/24/25 Progress Note: A&P Assessment and plan (1) Abscess of hand, left: Status: Acute (2) Cellulitis of left hand: Status: Acute (3) Acute lymphangitis of left upper extremity: Status: Acute Plan 1. Abscess of the left hand I educated the patient about the condition. I discussed both operative and nonoperative treatment options. The patient would like to proceed with surgery. The risks and benefits of operative treatment were discussed with the patient and the patient wishes to proceed with surgery. These risks include, but are not limited to, risk of damage to blood vessels, nerves, tendons, infection, recurrence, incomplete relief of preoperative symptoms, persistent pain, possible need for further surgery, and the risks associated with regional blocks and/or anesthesia. Plan is to take the patient to the operating room at some point in the next few weeks for the following procedures: 1. Left hand I and D under general Continue NPO status for surgery later today Continue IV antibiotics Time Spent With Patient Time: Total time managing care of this patient today ____ minutes. Quality Stroke Does the patient have a stroke diagnosis?: No VTE Prior VTE?: No VTE Risk Level:: Medical - moderate - high VTE Device Contraindication: Treatment Not Indicated VTE Drug Contraindication: N/A - Med Ordered
[2025-01-24 08:26] LABS: Creatinine Clr Calc Pharmacy 131.4; Estimated Glomerular Filt Rate > 60
--- NOTE | 2025-01-24 08:49 | HE.PHANOTE ---
Re: Guy Renal function is improving. Trough returned at 14, pt is therapeutic but running higher than predicted. Continue current dose of 1250mg q8h, with predicted AUC 441, predicted trough 12.6. Next trough 01/25 @ 0800.
[2025-01-24] MEDS: 0.9 % Sodium Chloride Flush 3 ML SYRINGE IVFLUSH ×3 (09:05→21:32)
--- NOTE | 2025-01-24 11:08 | P.HPSUR_ITS ---
Pre-Procedural Eval Section A - 24 Hr Update-Section A only Date of Service: 01/24/25 The patient is an INPATIENT: Yes Changes since office visit: Yes Cold of Flu in the past 2 weeks, Yes New Medical Problems, Yes Changes in Medication and Yes Patient answered all questions The patient has been examined within 24 hours of the surgical procedure. The History & Physical has been completed within 30 days and I have reviewed it.: Yes Section B - Complete if H&P > 30 days Chief Complaint: Left hand cellulitis Allergies: Allergies Allergy/AdvReac Type Severity Reaction Status Date / Time Penicillins AdvReac Hives Verified 01/22/25 05:48 Exam Exam Comment: I saw the patient in the ER, and again today in preop hold. My PA, Kaleb, saw him today and reported that he did appear to be developing an abscess in the area of the 1st webspace but that he had very good resolution of the cellulitis as of this morning. Interestingly, by 13:00 today he started developing a new erythema tracking up the volar and ulnar aspect of his forearm up to the elbow. There is soft there are no abscesses in this area. He can actively flex and extend his fingers with some tightness over the dorsum of his hand but no pain in the volar aspect of his forearm. Again most tender with some [place] edema over the dorsal aspect of the 1st webspace. Mild erythema on the palmar aspect of the 1st webspace but it is soft and nontender. No tenderness along any of the flexor tendons. No pain with axial loading of the wrist. Plan I have reviewed the history and physical and performed a pertinent physical examination on my patient. No changes have occurred unless specified. Assessment and plan: 1. Left dorsal hand abscess, 1st webspace 2. New onset today of some proximally migrating cellulitis up the volar ulnar aspect of the forearm. No abscess in this area as of now I educated the patient about these conditions. We discussed the risks and benefits of surgery and I am recommending surgery. The patient agrees. The risks and benefits of operative treatment were discussed with the patient and the patient wishes to proceed with surgery. These risks include, but are not limited to risk of damage to blood vessels, nerves, tendons, infection, recurrence, incomplete relief of preoperative symptoms, persistent pain, possible need for further surgery and the risks associated with regional blocks and anesthesia. The plan is to take the patient to the operating room today for the following procedures: 1. Left hand I and D 2. [ ] All of the preoperative paperwork including the consent was filled out today and signed. All the patient's questions were answered. Time Spent With Patient Time: Total time managing care of this patient today ____ minutes.
--- NOTE | 2025-01-24 11:09 | W.PM.OPN ---
Operative Note Operative Note Date of Service: 01/24/25 Narrative: Operative Note Narrative: Preop diagnosis: 1. Left hand abscess, 1st webspace Postop diagnosis: Same Procedure: 1. Left hand I&D 1st webspace and thenar bursa Surgeon: Adali Hatfield MD Director Radiation Oncology: Kaleb WILEY Anesthesia: General Anesthesia Findings: Some cloudy watery fluid from the 1st webspace area. No appreciable additional fluid from the thenar bursa Implants: None Tourniquet time: 24 minutes EBL: 5.0 ml Specimen: Cultures x2 Drains: Iodoform gauze as drains x2 Complications: None Disposition: Brought to the recovery room in stable condition Plan: Admit back to floor for IV antibiotics Check cultures and adjust antibiotics as indicated We touched base with the hospitalist team to make sure they were aware that we saw a new area of erythema that developed since this morning on the volar ulnar aspect of the forearm. No abscesses associated with this at this time. Ortho will remove drains and perform a wound check tomorrow. Daily dressing changes by nursing after that should be sufficient. Early OT for finger range of motion Indications: The patient is a 64 year old man with a left hand abscess and some ascending cellulitis . The risks and benefits of operative treatment, including but not limited to risk of damage to blood vessels, nerves, tendons, infection, recurrence, persistent pain or numbness, incomplete resolution of preoperative symptoms, or need for further surgery were discussed with the patient and they wished to proceed with surgery. Procedure: Once consent was obtained patient was brought back to the operating suite and placed in the operating table in a supine position. Anesthesia was administered by the anesthesia team. A tourniquet was applied to the proximal aspect of the left upper extremity and the limb was prepped and draped in a standard surgical fashion. The limb was elevated and the tourniquet inflated to 250 mm of mercury for a total tourniquet time of 24 minutes. I made a 2 cm longitudinal incision directly over the apex of the underlying abscess in the dorsal aspect of the 1st webspace. The incision was made through the skin to the subcutaneous tissues using a 15. Blade. I passed a hemostat into the cavity that extended over the dorsal aspect of the 1st metacarpal and also over the dorsal aspect of the 2nd metacarpal. There was a small amount of cloudy fluid. Cultures of the fluid were obtained. I passed the hemostat through the volar aspect of the 1st webspace into the thenar bursa and made a 1 cm incision over the palmar aspect of the 1st webspace. I was able to pass my hemostat through from dorsum to the volar incision. From the dorsal incision I passed my hemostat dorsal of the 1st metacarpal and made another 1 cm incision on the radial aspect of the 1st metacarpal. A 2nd culture was taken in the abscess cavity. This then allowed me to copiously irrigate across these incisions from the dorsal aspect of the 1st webspace. I copiously irrigated through the abscess cavity with normal saline. We then passed two 1 quarter-inch strips of iodoform gauze, 1 from the dorsal wound to the volar 1st webspace wound, the 2nd went from the dorsal 1st webspace wound to the incision over the 1st metacarpal. This was done to facilitate drainage.. [ ] At this point the tourniquet was deflated and hemostasis obtained with a brief period of local pressure . The wound was infiltrated with some 1% lidocaine with epinephrine for postop pain control and a sterile dressing was applied. The patient appears to have tolerated the procedure well and with no complications. All digits were well vascularized conclusion of the case.
[2025-01-24] MEDS: Lactated Ringers 1,000 ML 20 ML IVCONT (13:10)
[2025-01-24 13:14] LABS: HBsAGNum1 0.33 S/CO (0.00-0.99); Hepatitis B Surface Antigen Negative (Negative)
--- NOTE | 2025-01-24 14:34 | P.PNIM_ITS ---
Subjective Subjective Date of Service: 01/24/25 Interval History: Pain better controlled Redness and swelling initially improved, though returned some earlier in the morning Has had some white pus leaking out of open wound No repeat fevers Plan on surgical washout in the OR later today Review of Systems Review of Systems: Yes all other systems are reviewed and are negative Physical Exam 2 Exam: Exam: General: AOx3, no acute distress Resp: CTA bilaterally CVS: S1, S2, RRR GI: +BS, NT, no distention Skin: Warm, dry Neuro: Cranial nerves II-XII grossly intact bilaterally. Motor grossly intact bilaterally Extremities: Left forearm and wrist with improved erythema, warmth, and swelling. Left hand with continued swelling, warmth, and erythema, as pictured below. Psych: Appropriate affect Vital Signs: Vital Signs: Last Vital Signs Temp 98.1 F 01/24/25 12:28 Pulse 61 01/24/25 12:28 Resp 15 01/24/25 12:28 BP 105/52 L 01/24/25 12:28 Pulse Ox 92 01/24/25 12:28 O2 Del Method Room Air 01/24/25 12:28 BMI result Body Mass Index 36.8 Objective Data Active Medications Acetaminophen (Acetaminophen 325 Mg Tablet) 650 mg PO Q6H PRN PRN Reason: Pain, Mild 1-3,fever,headache Last Admin: 01/23/25 09:46 Dose: 650 mg Documented By: BEE Acetaminophen/Butalbital/Caffeine (Butalb/Acetamin/Caff 50/325/40 Tablet) 1 tab PO Q4H PRN PRN Reason: Headache Last Admin: 01/23/25 16:37 Dose: 1 tab Documented By: BEE Amlodipine Besylate (Amlodipine Besylate 5 Mg Tablet) 5 mg PO DAILY [facility]; Protocol Last Admin: 01/24/25 09:18 Dose: 5 mg Documented By: JILLIAN Atorvastatin Calcium (Atorvastatin Calcium 10 Mg Tablet) 10 mg PO BEDTIME LATISHA Last Admin: 01/23/25 21:46 Dose: 10 mg Documented By: BETO Calcium Carbonate (Calcium Carbonate 750 Mg Tab.Chew) 750 mg PO Q4H PRN PRN Reason: Heartburn Clonidine HCl (Clonidine Hcl 0.1 Mg Tablet) 0.3 mg PO BID [facility]; Protocol Last Admin: 01/24/25 09:18 Dose: 0.3 mg Documented By: JILLIAN Enoxaparin Sodium (Enoxaparin Sodium 40 Mg/0.4 Ml Syringe) 40 mg SUBCUT Q24H [facility] Last Admin: 01/23/25 13:56 Dose: 40 mg Documented By: BEE Hydromorphone HCl (Hydromorphone Hcl 1 Mg/Ml Syringe) 0.5 mg IVPUSH Q4H PRN; Protocol PRN Reason: Pain, Severe (Pain Scale 7-10) Clindamycin Phosphate (Cleocin) 600 mg in 50 mls @ 100 mls/hr IV Q8H [facility] Last Infusion: 01/24/25 13:22 Dose: Infused Documented By: ELBA Cefepime HCl (Maxipime) 2 gm in 50 mls @ 100 mls/hr IV Q8H [facility] Last Infusion: 01/24/25 10:02 Dose: Infused Documented By: JILLIAN Vancomycin HCl 1,250 mg/ (Sodium Chloride) 250 mls @ 166.667 mls/hr IV Q8H [facility] Last Infusion: 01/24/25 11:40 Dose: Infused Documented By: JILLIAN Lactated Ringer's (Lr) 1,000 mls @ 20 mls/hr IVCONT .Q24H [facility] Last Admin: 01/24/25 13:10 Dose: 20 mls/hr Documented By: ELBA Labetalol HCl (Labetalol Hcl 100 Mg Tablet) 100 mg PO QID [facility]; Protocol Last Admin: 01/24/25 13:07 Dose: Not Given Documented By: JILLIAN Non-Admin Reason: Off Unit: Surgery Magnesium Hydroxide (Milk Of Magnesia 30 Ml Oral.Susp) 30 ml PO DAILY PRN PRN Reason: Constipation Melatonin (Melatonin 3 Mg Tablet) 6 mg PO BEDTIME PRN PRN Reason: Insomnia Naloxone HCl (Naloxone Hcl 0.4 Mg/Ml Vial) 0.04 mg IVPUSH Q5M PRN PRN Reason: Excessive sedation or RR < 8 Ondansetron HCl (Ondansetron Hcl 4 Mg/2 Ml Vial) 4 mg IVPUSH Q8H PRN PRN Reason: Nausea and Vomiting Last Admin: 01/22/25 19:28 Dose: 4 mg Documented By: PRICILA Pharmacy Consult (Consult Rx Vancomycin Dosing) 1 each MISCELLANE DAILY PRN PRN Reason: Consult order Sodium Chloride (0.9 % Sodium Chloride Flush 3 Ml Syringe) [facility] Last Admin: 01/24/25 09:05 Dose: 3 ml Documented By: JILLIAN Tramadol HCl (Tramadol Hcl 50 Mg Tablet) 50 mg PO QID PRN PRN Reason: Pain, Moderate(Pain Scale 4-6) Last Admin: 01/24/25 09:14 Dose: 50 mg Documented By: JILLIAN Labs 01/23/25 06:09 01/24/25 08:00 Labs: Laboratory Results - last 24 hr 01/22/25 01/24/25 09:32 08:00 Estim Creat Clear Calc 131.4 Estimated GFR > 60 Vancomycin Trough 14.0 Hep Bs Antigen Negative Microbiology Microbiology Results: Microbiology 01/22/25 06:24 Blood Culture - Preliminary Blood - Venous No growth after 48 hours. 01/22/25 06:24 Blood Culture - Preliminary Blood - Venous No growth after 48 hours. Assessment and Plan (1) Cellulitis of left hand: Status: Acute (2) Abscess of hand, left: Status: Acute Plan Pt is a 64-year-old male with a PMH significant for?HTN and HLD who presents to the ED with?left hand and wrist swelling, redness, and pain x1 day. 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 Pt is admitted to the hospital for treatment and further evaluation of left hand cellulitis requiring IV antibiotics. Left hand and forearm cellulitis and left hand abscess with sepsis Secondary to puncture wound while working on hospital kitchen floor on morning of 01/20 Rapid progression of cellulitis on 01/22 in <4 hours Met sepsis criteria with fever and leukocytosis; no hypotension, lactic acidosis, or other severe features Left hand and wrist x-ray showed soft tissue swelling of the thenar eminence and dorsum of the hand without evidence of osteomyelitis. Infectious disease consult, recommend vanc and clindamycin, started 01/22; switch to linezolid if no improvement Ortho consulted, plan on surgical washout in the OR later in the day Analgesics for pain management HTN Continue amlodipine, clonidine, and labetalol HLD Continue statin Chronic musculoskeletal pain Continue tramadol p.r.n. Full Code DVT Prophylaxis: Lovenox Pt will need continued hospitalization for treatment and further evaluation of left hand cellulitis with sepsis requiring IV antibiotics and surgical washout in the OR. Quality Stroke Does the patient have a stroke diagnosis?: No VTE Prior VTE?: No VTE Risk Level:: Medical - moderate - high VTE Device Contraindication: Treatment Not Indicated VTE Drug Contraindication: N/A - Med Ordered
[2025-01-25] VITALS (9 sets, daily range): BP systolic 120–164; BP diastolic 60–88; PULSE 63–78; RESP 18; TEMP 36–36.9; O2SAT 94–96
[2025-01-25 07:11] LABS: Creatinine Clr Calc Pharmacy 129.7; Estimated Glomerular Filt Rate > 60
[2025-01-25] MEDS: 0.9 % Sodium Chloride Flush 3 ML SYRINGE IVFLUSH ×2 (07:36→16:12)
[2025-01-25 08:48] LABS: Hematocrit 40.3 % (42.0-52.0); Hemoglobin 13.8 g/dl (14.0-18.0); Mean Corpuscular HGB Conc 34.2 g/dl (31.0-36.0); Mean Corpuscular Hemoglobin 29.5 pg (27.0-33.0); Mean Corpuscular Volume 86.1 fL (80.0-98.0); NRBC Abs Auto 0.000 X10*3/uL (0.0-0.012); NRBC Pct Auto 0.0 /100WBC (0.0-0.2); Platelet Count 359 X10*3/uL (160-400); Red Blood Count 4.68 X10*6/uL (4.60-5.80); White Blood Count 15.6 X10*3/uL (4.8-10.8)
--- NOTE | 2025-01-25 08:52 | HO.POSTANES ---
Post Anesthesia Evaluation Post Anesthesia Evaluation Date of Service: 01/25/25 Vital Signs: Vital Signs Temp Pulse Resp BP Pulse Ox O2 Del Method 01/25/25 07:36 164/84 H 01/25/25 07:35 78 164/84 H 01/25/25 07:35 164/84 H 01/25/25 07:29 98.4 F 78 18 164/84 H 94 Room Air 01/25/25 06:01 18 01/25/25 04:00 96.8 F 63 18 120/60 94 Room Air Anesthesia: General Mental Status: Awake Pain Control: Satisfactory (just had pain med padilla not yet under control) Nausea/Vomiting: None Hydration: Adequate Anesthesia-Related Issues: No Anes. Related Issues
[2025-01-25 09:08] LABS: Anion Gap 12 (12-20); Blood Urea Nitrogen 13 mg/dL (9-16); Calcium 9.3 mg/dL (8.4-10.2); Carbon Dioxide 27 mmol/L (22-29); Chloride 105 mmol/L (96-108); Creatinine Clr Calc Pharmacy 133.1; Estimated Glomerular Filt Rate > 60; Potassium 4.0 mmol/L (3.3-5.1); Sodium 140 mmol/L (135-145)
[2025-01-25] MEDS: Linezolid/D5W 600 MG/300 ML PIGGYBACK 300 MG IV ×2 (09:51→20:48)
--- NOTE | 2025-01-25 12:23 | HO.PM.IMPN ---
Subjective Subjective Date of Service: 01/25/25 Interval History: Underwent washout yesterday with scant amount of pus found Wound cultures pending, negative to date Left arm erythema initially better but worse this morning Left hand pain with movement Headache resolved Review of Systems Review of Systems: Yes all other systems are reviewed and are negative Physical Exam Exam: Exam: General: AOx3, no acute distress Resp: CTA bilaterally CVS: S1, S2, RRR GI: +BS, NT, no distention Skin: Warm, dry Neuro: Cranial nerves II-XII grossly intact bilaterally. Motor grossly intact bilaterally Extremities: Left arm with worsening diffuse erythema above elbow. Left hand wrapped in clean dressing. As pictured below. Psych: Appropriate affect Vital Signs: Vital Signs: Last Vital Signs Temp 98.4 F 01/25/25 07:29 Pulse 78 01/25/25 07:35 Resp 18 01/25/25 07:29 BP 164/84 H 01/25/25 07:36 Pulse Ox 94 01/25/25 07:29 O2 Del Method Room Air 01/25/25 07:29 O2 Flow Rate 2 01/24/25 15:26 BMI result Body Mass Index 36.8 Objective Data Active Medications Acetaminophen (Acetaminophen 325 Mg Tablet) 650 mg PO Q6H PRN PRN Reason: Pain, Mild 1-3,fever,headache Last Admin: 01/23/25 09:46 Dose: 650 mg Documented By: BEE Acetaminophen/Butalbital/Caffeine (Butalb/Acetamin/Caff 50/325/40 Tablet) 1 tab PO Q4H PRN PRN Reason: Headache Last Admin: 01/23/25 16:37 Dose: 1 tab Documented By: BEE Amlodipine Besylate (Amlodipine Besylate 5 Mg Tablet) 5 mg PO DAILY [facility]; Protocol Last Admin: 01/25/25 07:35 Dose: 5 mg Documented By: JILLIAN Atorvastatin Calcium (Atorvastatin Calcium 10 Mg Tablet) 10 mg PO BEDTIME [facility] Last Admin: 01/24/25 21:30 Dose: 10 mg Documented By: BETO Calcium Carbonate (Calcium Carbonate 750 Mg Tab.Chew) 750 mg PO Q4H PRN PRN Reason: Heartburn Clonidine HCl (Clonidine Hcl 0.1 Mg Tablet) 0.3 mg PO BID [facility]; Protocol Last Admin: 01/25/25 07:36 Dose: 0.3 mg Documented By: JILLIAN Enoxaparin Sodium (Enoxaparin Sodium 40 Mg/0.4 Ml Syringe) 40 mg SUBCUT Q24H [facility] Last Admin: 01/24/25 15:30 Dose: Not Given Documented By: JILLIAN Non-Admin Reason: Off Unit: Surgery Hydromorphone HCl (Hydromorphone Hcl 1 Mg/Ml Syringe) 0.5 mg IVPUSH Q4H PRN; Protocol PRN Reason: Pain, Severe (Pain Scale 7-10) Last Admin: 01/25/25 09:57 Dose: 0.5 mg Documented By: JILLIAN Linezolid (Zyvox/D5w) 600 mg in 300 mls @ 300 mls/hr IV Q12H [facility] Last Infusion: 01/25/25 11:06 Dose: Infused Documented By: JILLIAN Doxycycline Hyclate 100 mg/ (Sodium Chloride) 250 mls @ 166.67 mls/hr IV Q12H [facility] Last Admin: 01/25/25 11:03 Dose: 166.67 mls/hr Documented By: JILLIAN Labetalol HCl (Labetalol Hcl 100 Mg Tablet) 100 mg PO QID [facility]; Protocol Last Admin: 01/25/25 07:35 Dose: 100 mg Documented By: JILLIAN Magnesium Hydroxide (Milk Of Magnesia 30 Ml Oral.Susp) 30 ml PO DAILY PRN PRN Reason: Constipation Melatonin (Melatonin 3 Mg Tablet) 6 mg PO BEDTIME PRN PRN Reason: Insomnia Ondansetron HCl (Ondansetron Hcl 4 Mg/2 Ml Vial) 4 mg IVPUSH Q8H PRN PRN Reason: Nausea and Vomiting Last Admin: 01/22/25 19:28 Dose: 4 mg Documented By: LEFEBEDGAR Sodium Chloride (0.9 % Sodium Chloride Flush 3 Ml Syringe) 3 ml IVFLUSH QSHIFT [facility] Last Admin: 01/25/25 07:36 Dose: 3 ml Documented By: JILLIAN Tramadol HCl (Tramadol Hcl 50 Mg Tablet) 50 mg PO QID PRN PRN Reason: Pain, Moderate(Pain Scale 4-6) Last Admin: 01/25/25 07:36 Dose: 50 mg Documented By: JILLIAN Labs 01/25/25 08:27 01/25/25 08:27 Labs: Laboratory Results - last 24 hr 01/22/25 01/25/25 01/25/25 09:32 05:37 08:27 MCV 86.1 MCH 29.5 MCHC 34.2 RDW 13.2 Plt Count 359 MPV 10.1 Absolute Nucleated RBC 0.000 Nucleated RBC % (auto) 0.0 Anion Gap 12 Estim Creat Clear Calc 129.7 133.1 Estimated GFR > 60 > 60 Random Glucose 121 H Calcium 9.3 Vancomycin Trough 15.9 Hep Bs Antigen Negative Microbiology Microbiology Results: Microbiology 01/24/25 14:03 Gram Stain - Final Hand Left Routine Culture - Preliminary No growth to date. 01/24/25 13:52 Gram Stain - Final Hand Left Routine Culture - Preliminary No growth to date. 01/22/25 06:24 Blood Culture - Preliminary Blood - Venous No growth after 48 hours. 01/22/25 06:24 Blood Culture - Preliminary Blood - Venous No growth after 48 hours. Assessment and Plan (1) Cellulitis of left hand: Status: Acute (2) Abscess of hand, left: Status: Acute Plan Pt is a 64-year-old male with a PMH significant for?HTN and HLD who presents to the ED with?left hand and wrist swelling, redness, and pain x1 day. 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 Pt is admitted to the hospital for treatment and further evaluation of left hand cellulitis requiring IV antibiotics. Left hand and forearm cellulitis and abscess with sepsis Secondary to puncture wound while working on hospital kitchen floor on morning of 01/20 Rapid progression of cellulitis on 01/22 in <4 hours Met sepsis criteria with fever and leukocytosis; no hypotension, lactic acidosis, or other severe features Left hand and wrist x-ray showed soft tissue swelling of the thenar eminence and dorsum of the hand without evidence of osteomyelitis. Infectious disease consult, recommend vanc, cefepime, and clindamycin, started 01/22; switched to linezolid and doxy on 01/25 as cellulitis not improving Ortho consulted, underwent surgical washout on 01/24 Analgesics for pain management HTN Continue amlodipine, clonidine, and labetalol HLD Continue statin Chronic musculoskeletal pain Continue tramadol p.r.n. Full Code DVT Prophylaxis: Lovenox Pt will need continued hospitalization for treatment and further evaluation of left hand cellulitis with sepsis requiring IV antibiotics. Given the patient's cellulitis is not improving, we will switch antibiotics and further evaluated tomorrow for response to treatment. If pt does well and cellulitis rapidly improving, can consider discharge tomorrow. Quality Stroke Does the patient have a stroke diagnosis?: No VTE Prior VTE?: No VTE Risk Level:: Medical - moderate - high VTE Device Contraindication: Treatment Not Indicated VTE Drug Contraindication: N/A - Med Ordered
--- NOTE | 2025-01-25 15:02 | P.PNID_ITS ---
Subjective Subjective Date of Service: 01/25/25 Critical Care Time (minutes): 15 Comment: he has worsening redness and swelling today Objective Data Labs 01/25/25 08:27 01/25/25 08:27 Labs: Laboratory Results - last 24 hr 01/25/25 01/25/25 05:37 08:27 WBC 15.6 H RBC 4.68 Hgb 13.8 L Hct 40.3 L MCV 86.1 MCH 29.5 MCHC 34.2 RDW 13.2 Plt Count 359 MPV 10.1 Absolute Nucleated RBC 0.000 Nucleated RBC % (auto) 0.0 Sodium 140 Potassium 4.0 Chloride 105 Carbon Dioxide 27 Anion Gap 12 BUN 13 Creatinine 0.79 0.77 Estim Creat Clear Calc 129.7 133.1 Estimated GFR > 60 > 60 Random Glucose 121 H Calcium 9.3 Vancomycin Trough 15.9 Microbiology Microbiology Results: Microbiology 01/24/25 14:03 Hand Left Gram Stain - Final 01/24/25 14:03 Hand Left Routine Culture - Preliminary No growth to date. 01/24/25 13:52 Hand Left Gram Stain - Final 01/24/25 13:52 Hand Left Routine Culture - Preliminary No growth to date. 01/22/25 06:24 Blood - Venous Blood Culture - Preliminary No growth after 48 hours. 01/22/25 06:24 Blood - Venous Blood Culture - Preliminary No growth after 48 hours. Physical Exam 2 Vital Signs: Vital Signs: Last Vital Signs Temp 98.4 F 01/25/25 07:29 Pulse 77 01/25/25 12:53 Resp 18 01/25/25 07:29 BP 145/88 H 01/25/25 12:53 Pulse Ox 94 01/25/25 07:29 O2 Del Method Room Air 01/25/25 07:29 O2 Flow Rate 2 01/24/25 15:26 BMI result Body Mass Index 36.8 Const: General: cooperative HEENT: Head: Yes normal to inspection Face and sinus: Yes normal facial exam Mouth: Normal oral and palatal mucosa present Teeth and gingiva: d entition normal Eyes: General: appearance normal, both eyes and all related structures P upils: Equal, round and reactive pupils present Resp: Effort & Inspection: normal respiratory effort Cardio: Rate: regular rate Rhythm: regular rhythm GI: Palpation (GI): Soft to palpation and nontender : General: Yes no CVA tenderness Back/Spine/Pelvis: Back: no CVA tenderness Skin: General skin exam: no rashes or lesions noted Neuro: General: moves all extremities Cranial nerves: Yes Equal, round and reactive pupils present Extrem: Other: left arm worsening redness medially and swelling Psych: Appearance: grossly normal Assessment and Plan Assessment and plan (1) Cellulitis of left hand: Problem details: He has worsening Concern for additional abscess,has just had I and D per Hand Status: Acute Assessment and Plan: Would continue linezolid No need for Doxycycline,will stop (has not improved on Cefepime and Vancomycin) Consider MRI or CT with contrast of extremity evaluate abscess and u/s evaluate clot Follow Hand (2) Acute lymphangitis of left upper extremity: Status: Acute Time Spent With Patient Time: Total time managing care of this patient today ____ minutes.
--- NOTE | 2025-01-25 15:02 | PM.PNORT ---
Subjective Subjective Date of Service: 01/25/25 Interval history: Postop day 1 status post I and D of left hand Patient resting in bed this morning Reports he is still in significant pain in the left hand, wrist, and forearm Patient also reports that cellulitis has not improved, and has slightly worsened overnight No other acute complaints or concerns at this time Denies numbness or tingling in the left hand Physical Exam Vital Signs: Vital Signs: Last Vital Signs Temp 98.4 F 01/25/25 07:29 Pulse 77 01/25/25 12:53 Resp 18 01/25/25 07:29 BP 145/88 H 01/25/25 12:53 Pulse Ox 94 01/25/25 07:29 O2 Del Method Room Air 01/25/25 07:29 O2 Flow Rate 2 01/24/25 15:26 BMI result Body Mass Index 36.8 Extrem: Other: Patient is alert, oriented, and in no acute distress. Neuro: Normal sensation of the tips of all digits of the left hand at this time Vascular: Cap refill brisk Pain: No further tenderness to palpation about area of lymphangitis on left forearm and proximal arm [id number] tenderness to palpation in dorsal left hand, worst in the 1st webspace ROM: Patient is able to flex and extend all digits of the left hand, isn't able to make a closed fist, likely due to swelling Skin: There are 2 small wounds noted in the dorsal 1st webspace of the left hand from known injury Significant edema in the 1st webspace of the left hand, more firm in the dorsal aspect but soft and volar Incisions still open and patent with drains in place General: Significant erythema about the dorsal aspect of the left hand, worst in the area of the 1st webspace Redness now extending into the volar side of the left forearm and elbow, has worsened since evaluation yesterday slightly Psych: Appears grossly normal Affect normal Attitude cooperative Procedures Date of Service Date of Service: 01/25/25 Progress Note: A&P Assessment and plan (1) Abscess of hand, left: Status: Acute (2) Acute lymphangitis of left upper extremity: Status: Acute (3) Cellulitis of left hand: Status: Acute Plan 1. Status post I and D of left hand DOS 01/24/2025 Minimal purulence noted in surgery Continue IV antibiotics Would consider antibiotic change, as cellulitis does appear to be worsening Monitor wound cultures, negative Gram stains Daily dressing changes per nursing Dressing changed today Drains pulled Patient will require continued monitoring for worsening cellulitis Time Spent With Patient Time: Total time managing care of this patient today ____ minutes. Quality Stroke Does the patient have a stroke diagnosis?: No VTE Prior VTE?: No VTE Risk Level:: Medical - moderate - high VTE Device Contraindication: Treatment Not Indicated VTE Drug Contraindication: N/A - Med Ordered
--- NOTE | 2025-01-25 16:04 | MHC.CM.PN ---
PER MD ROUNDS, PT NOT MEDICALLY CLEARED, ABX BEING CHANGED CM FOLLOWING FOR DC NEEDS
[2025-01-25] MEDS: diphenhydrAMINE HCl 2 % Cream 28 GM TUBE 1 APPL TOPICAL (22:31)
[2025-01-26] VITALS (7 sets, daily range): BP systolic 128–139; BP diastolic 60–70; PULSE 62–70; RESP 18; TEMP 36.1–36.7; O2SAT 93–97
[2025-01-26 06:43] LABS: Hematocrit 37.7 % (42.0-52.0); Hemoglobin 12.8 g/dl (14.0-18.0); Mean Corpuscular HGB Conc 34.0 g/dl (31.0-36.0); Mean Corpuscular Hemoglobin 29.2 pg (27.0-33.0); Mean Corpuscular Volume 86.1 fL (80.0-98.0); NRBC Abs Auto 0.000 X10*3/uL (0.0-0.012); NRBC Pct Auto 0.0 /100WBC (0.0-0.2); Platelet Count 357 X10*3/uL (160-400); Red Blood Count 4.38 X10*6/uL (4.60-5.80); White Blood Count 10.8 X10*3/uL (4.8-10.8)
[2025-01-26 06:56] LABS: Anion Gap 13 (12-20); Blood Urea Nitrogen 14 mg/dL (9-16); Calcium 9.2 mg/dL (8.4-10.2); Carbon Dioxide 23 mmol/L (22-29); Chloride 107 mmol/L (96-108); Creatinine Clr Calc Pharmacy 133.1; Estimated Glomerular Filt Rate > 60; Potassium 4.4 mmol/L (3.3-5.1); Sodium 139 mmol/L (135-145)
[2025-01-26] MEDS: diphenhydrAMINE HCl 2 % Cream 28 GM TUBE 1 APPL TOPICAL ×2 (09:08→13:31)
[2025-01-26] MEDS: 0.9 % Sodium Chloride Flush 3 ML SYRINGE IVFLUSH ×2 (09:08→16:51)
[2025-01-26] MEDS: Linezolid/D5W 600 MG/300 ML PIGGYBACK 300 MG IV ×2 (09:11→21:06)
--- NOTE | 2025-01-26 14:03 | HO.PM.IMPN ---
Subjective Subjective Date of Service: 01/26/25 Interval History: Some itching in left arm last night, improved with Benadryl clear Erythema, pain, and swelling much improved from yesterday after antibiotics which No other acute events or complaints Review of Systems Review of Systems: Yes all other systems are reviewed and are negative Physical Exam Exam: Exam: General: AOx3, no acute distress Resp: CTA bilaterally CVS: S1, S2, RRR GI: +BS, NT, no distention Skin: Warm, dry Neuro: Cranial nerves II-XII grossly intact bilaterally. Motor grossly intact bilaterally Extremities: Erythema, warmth, and swelling left upper arm and and improved from yesterday. Left hand wrapped in clean dressing. As pictured below. Psych: Appropriate affect Vital Signs: Vital Signs: Last Vital Signs Temp 97.0 F 01/26/25 07:45 Pulse 62 01/26/25 12:57 Resp 18 01/26/25 12:53 BP 138/60 01/26/25 12:57 Pulse Ox 93 01/26/25 12:53 O2 Del Method Room Air 01/26/25 12:53 O2 Flow Rate 2 01/24/25 15:26 BMI result Body Mass Index 36.8 Objective Data Active Medications Acetaminophen (Acetaminophen 325 Mg Tablet) 650 mg PO Q6H PRN PRN Reason: Pain, Mild 1-3,fever,headache Last Admin: 01/23/25 09:46 Dose: 650 mg Documented By: BEE Acetaminophen/Butalbital/Caffeine (Butalb/Acetamin/Caff 50/325/40 Tablet) 1 tab PO Q4H PRN PRN Reason: Headache Last Admin: 01/23/25 16:37 Dose: 1 tab Documented By: BEE Amlodipine Besylate (Amlodipine Besylate 5 Mg Tablet) 5 mg PO DAILY [facility]; Protocol Last Admin: 01/26/25 09:11 Dose: 5 mg Documented By: AYDIN Atorvastatin Calcium (Atorvastatin Calcium 10 Mg Tablet) 10 mg PO BEDTIME [facility] Last Admin: 01/25/25 20:41 Dose: 10 mg Documented By: ARNAUD Calcium Carbonate (Calcium Carbonate 750 Mg Tab.Chew) 750 mg PO Q4H PRN PRN Reason: Heartburn Clonidine HCl (Clonidine Hcl 0.1 Mg Tablet) 0.3 mg PO BID [facility]; Protocol Last Admin: 01/26/25 09:10 Dose: 0.3 mg Documented By: AYDIN Enoxaparin Sodium (Enoxaparin Sodium 40 Mg/0.4 Ml Syringe) 40 mg SUBCUT Q24H [facility] Last Admin: 01/26/25 13:32 Dose: 40 mg Documented By: AYDIN Hydromorphone HCl (Hydromorphone Hcl 1 Mg/Ml Syringe) 1 mg IVPUSH Q4H PRN; Protocol PRN Reason: Pain, Severe (Pain Scale 7-10) Last Admin: 01/26/25 13:31 Dose: 1 mg Documented By: AYDIN Linezolid (Zyvox/D5w) 600 mg in 300 mls @ 300 mls/hr IV Q12H [facility] Last Infusion: 01/26/25 10:44 Dose: Infused Documented By: AYDIN Labetalol HCl (Labetalol Hcl 100 Mg Tablet) 100 mg PO QID [facility]; Protocol Last Admin: 01/26/25 12:57 Dose: 100 mg Documented By: AYDIN Magnesium Hydroxide (Milk Of Magnesia 30 Ml Oral.Susp) 30 ml PO DAILY PRN PRN Reason: Constipation Melatonin (Melatonin 3 Mg Tablet) 6 mg PO BEDTIME PRN PRN Reason: Insomnia Ondansetron HCl (Ondansetron Hcl 4 Mg/2 Ml Vial) 4 mg IVPUSH Q8H PRN PRN Reason: Nausea and Vomiting Last Admin: 01/22/25 19:28 Dose: 4 mg Documented By: LEFEBEDGAR Sodium Chloride (0.9 % Sodium Chloride Flush 3 Ml Syringe) 3 ml IV[facility] Last Admin: 01/26/25 09:08 Dose: 3 ml Documented By: AYDIN Tramadol HCl (Tramadol Hcl 50 Mg Tablet) 50 mg PO QID PRN PRN Reason: Pain, Moderate(Pain Scale 4-6) Last Admin: 01/25/25 17:06 Dose: 50 mg Documented By: JILLIAN Zinc Acetate/Diphenhydramine (Diphenhydramine Hcl 2 % Cream 28 Gm Tube) 1 appl TOPICAL BID PRN; Protocol PRN Reason: Itching Last Admin: 01/26/25 13:31 Dose: 1 appl Documented By: AYDIN Comments: MD holliday to give now Labs 01/26/25 06:29 01/26/25 06:29 Labs: Laboratory Results - last 24 hr 01/26/25 06:29 MCV 86.1 MCH 29.2 MCHC 34.0 RDW 13.1 Plt Count 357 MPV 10.2 Absolute Nucleated RBC 0.000 Nucleated RBC % (auto) 0.0 Anion Gap 13 Estim Creat Clear Calc 133.1 Estimated GFR > 60 Random Glucose 128 H Calcium 9.2 Microbiology Microbiology Results: Microbiology 01/24/25 14:03 Gram Stain - Final Hand Left Routine Culture - Final Streptococcus pyogenes (Grp A) 01/24/25 13:52 Gram Stain - Final Hand Left Routine Culture - Final Streptococcus pyogenes (Grp A) Assessment and Plan (1) Cellulitis of left hand: Status: Acute (2) Abscess of hand, left: Status: Acute Plan Pt is a 64-year-old male with a PMH significant for?HTN and HLD who presents to the ED with?left hand and wrist swelling, redness, and pain x1 day. 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 Pt is admitted to the hospital for treatment and further evaluation of left hand cellulitis requiring IV antibiotics. Left hand and forearm cellulitis and abscess with sepsis Secondary to puncture wound while working on hospital kitchen floor on morning of 01/20 Rapid progression of cellulitis on 01/22 in <4 hours Met sepsis criteria with fever and leukocytosis; no hypotension, lactic acidosis, or other severe features Left hand and wrist x-ray showed soft tissue swelling of the thenar eminence and dorsum of the hand without evidence of osteomyelitis. Infectious disease consult, recommended vanc, cefepime, and clindamycin, started 01/22; switched to linezolid 01/25 as cellulitis not improving Ortho consulted, underwent surgical washout on 01/24 Analgesics for pain management, Benadryl ointment for itching HTN Continue amlodipine, clonidine, and labetalol HLD Continue statin Chronic musculoskeletal pain Continue tramadol p.r.n. Full Code DVT Prophylaxis: Lovenox Pt will need continued hospitalization for treatment and further evaluation of left hand cellulitis with sepsis requiring IV antibiotics. Patient's cellulitis is now improving after switching to linezolid. Will require additional hospitalization for monitoring of response to change in antibiotics. If patient's condition continues to improve, he should be able to be discharged tomorrow on p.o. linezolid. Quality Stroke Does the patient have a stroke diagnosis?: No VTE Prior VTE?: No VTE Risk Level:: Medical - moderate - high VTE Device Contraindication: Treatment Not Indicated VTE Drug Contraindication: N/A - Med Ordered
[2025-01-26] MEDS: iohexoL 350 MG/ML 100 ML INFUS..BTL IV (18:47)
--- NOTE | 2025-01-26 19:17 | PM.EVENT ---
Event Note Date of Service: 01/26/25 Event Note: Notified by nursing this evening that patient's erythema, swelling, and pain of left upper extremity returned and increased. As pictured below. We will get CT with contrast of left upper extremity. Contacted ID and will start pt on Ashly panel 1 g Q 8 and Diflucan 100 mg daily. Time Spent With Patient Time: Total time managing care of this patient today ____ minutes.
[2025-01-27 04:00] VITALS: BP 126/72; PULSE 60; RESP 18; TEMP 36; O2SAT 92
[2025-01-27 07:57] VITALS: BP 146/74; PULSE 60; RESP 18; TEMP 36.2; O2SAT 95
[2025-01-27 08:38] LABS: Hematocrit 41.3 % (42.0-52.0); Hemoglobin 13.6 g/dl (14.0-18.0); Mean Corpuscular HGB Conc 32.9 g/dl (31.0-36.0); Mean Corpuscular Hemoglobin 29.3 pg (27.0-33.0); Mean Corpuscular Volume 89.0 fL (80.0-98.0); NRBC Abs Auto 0.000 X10*3/uL (0.0-0.012); NRBC Pct Auto 0.0 /100WBC (0.0-0.2); Platelet Count 413 X10*3/uL (160-400); Red Blood Count 4.64 X10*6/uL (4.60-5.80); White Blood Count 11.5 X10*3/uL (4.8-10.8)
--- NOTE | 2025-01-27 08:47 | HO.PM.IMPN ---
Subjective Subjective Date of Service: 01/27/25 Interval History: CT with contrast of left hand and forearm with extensive subcutaneous edema suggestive of cellulitis without drainable fluid collection. Also showed a few foci of gas and gas, likely secondary to recent surgical intervention. Erythema improved on forearm; forearm pain slightly worse Continues to complain of itching of forearm and on back No fevers or n/v Review of Systems Review of Systems: Yes all other systems are reviewed and are negative Physical Exam Exam: Exam: General: AOx3, no acute distress Resp: CTA bilaterally CVS: S1, S2, RRR GI: +BS, NT, no distention Skin: Warm, dry Neuro: Cranial nerves II-XII grossly intact bilaterally. Motor grossly intact bilaterally Extremities: Erythema, warmth, and swelling left upper arm and and improved from yesterday. Left hand as below. As pictured below. Psych: Appropriate affect Vital Signs: Vital Signs: Last Vital Signs Temp 97.1 F 01/27/25 07:57 Pulse 60 01/27/25 07:57 Resp 18 01/27/25 07:57 BP 146/74 H 01/27/25 07:57 Pulse Ox 95 01/27/25 07:57 O2 Del Method Room Air 01/27/25 07:57 O2 Flow Rate 2 01/24/25 15:26 BMI result Body Mass Index 36.8 Objective Data Active Medications Acetaminophen (Acetaminophen 325 Mg Tablet) 650 mg PO Q6H PRN PRN Reason: Pain, Mild 1-3,fever,headache Last Admin: 01/23/25 09:46 Dose: 650 mg Documented By: BEE Acetaminophen/Butalbital/Caffeine (Butalb/Acetamin/Caff 50/325/40 Tablet) 1 tab PO Q4H PRN PRN Reason: Headache Last Admin: 01/23/25 16:37 Dose: 1 tab Documented By: BEE Amlodipine Besylate (Amlodipine Besylate 5 Mg Tablet) 5 mg PO DAILY [facility]; Protocol Last Admin: 01/26/25 09:11 Dose: 5 mg Documented By: AYDIN Atorvastatin Calcium (Atorvastatin Calcium 10 Mg Tablet) 10 mg PO BEDTIME [facility] Last Admin: 01/26/25 21:08 Dose: 10 mg Documented By: ARNAUD Calcium Carbonate (Calcium Carbonate 750 Mg Tab.Chew) 750 mg PO Q4H PRN PRN Reason: Heartburn Clonidine HCl (Clonidine Hcl 0.1 Mg Tablet) 0.3 mg PO BID [facility]; Protocol Last Admin: 01/26/25 21:07 Dose: 0.3 mg Documented By: ARNAUD Diphenhydramine HCl (Diphenhydramine Hcl 50 Mg/Ml Vial) 25 mg IVPUSH Q6H PRN PRN Reason: Itching Enoxaparin Sodium (Enoxaparin Sodium 40 Mg/0.4 Ml Syringe) 40 mg SUBCUT Q24H [facility] Last Admin: 01/26/25 13:32 Dose: 40 mg Documented By: AYDIN Fluconazole (Fluconazole 100 Mg Tablet) 100 mg PO DAILY [facility] Last Admin: 01/26/25 18:16 Dose: 100 mg Documented By: AYDIN Hydromorphone HCl (Hydromorphone Hcl 1 Mg/Ml Syringe) 1 mg IVPUSH Q4H PRN; Protocol PRN Reason: Pain, Severe (Pain Scale 7-10) Last Admin: 01/26/25 21:03 Dose: 1 mg Documented By: ARNAUD Linezolid (Zyvox/D5w) 600 mg in 300 mls @ 300 mls/hr IV Q12H [facility] Last Infusion: 01/26/25 22:18 Dose: Infused Documented By: ARNAUD Labetalol HCl (Labetalol Hcl 100 Mg Tablet) 100 mg PO QID [facility]; Protocol Last Admin: 01/26/25 21:07 Dose: 100 mg Documented By: ARNAUD Magnesium Hydroxide (Milk Of Magnesia 30 Ml Oral.Susp) 30 ml PO DAILY PRN PRN Reason: Constipation Melatonin (Melatonin 3 Mg Tablet) 6 mg PO BEDTIME PRN PRN Reason: Insomnia Meropenem (Meropenem 1 Gm Vial) 1 gm IVPUSH Q8H [facility] Last Admin: 01/27/25 02:37 Dose: 1 gm Documented By: ARNAUD Ondansetron HCl (Ondansetron Hcl 4 Mg/2 Ml Vial) 4 mg IVPUSH Q8H PRN PRN Reason: Nausea and Vomiting Last Admin: 01/22/25 19:28 Dose: 4 mg Documented By: LEFEBVA Sodium Chloride (0.9 % Sodium Chloride Flush 3 Ml Syringe) 3 ml IVFLUSH QSHIFT [facility] Last Admin: 01/27/25 00:10 Dose: Not Given Documented By: ARNAUD Non-Admin Reason: Previously Administered Tramadol HCl (Tramadol Hcl 50 Mg Tablet) 50 mg PO QID PRN PRN Reason: Pain, Moderate(Pain Scale 4-6) Last Admin: 01/25/25 17:06 Dose: 50 mg Documented By: JILLIAN Zinc Acetate/Diphenhydramine (Diphenhydramine Hcl 2 % Cream 28 Gm Tube) 1 appl TOPICAL BID PRN; Protocol PRN Reason: Itching Last Admin: 01/26/25 13:31 Dose: 1 appl Documented By: AYDIN Comments: MD holliday to give now Labs 01/27/25 08:01 01/27/25 08:01 Labs: Laboratory Results - last 24 hr 01/27/25 08:01 MCV 89.0 MCH 29.3 MCHC 32.9 RDW 12.9 Plt Count 413 H MPV 10.2 Absolute Nucleated RBC 0.000 Nucleated RBC % (auto) 0.0 Microbiology Microbiology Results: Microbiology 01/22/25 06:24 Blood Culture - Final Blood - Venous No growth after 5 days. 01/22/25 06:24 Blood Culture - Final Blood - Venous No growth after 5 days. 01/24/25 14:03 Gram Stain - Final Hand Left Routine Culture - Final Streptococcus pyogenes (Grp A) 01/24/25 13:52 Gram Stain - Final Hand Left Routine Culture - Final Streptococcus pyogenes (Grp A) Assessment and Plan (1) Cellulitis of left hand: Status: Acute (2) Abscess of hand, left: Status: Acute Plan Pt is a 64-year-old male with a PMH significant for?HTN and HLD who presents to the ED with?left hand and wrist swelling, redness, and pain x1 day. 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 Pt is admitted to the hospital for treatment and further evaluation of left hand cellulitis requiring IV antibiotics. Left hand and forearm cellulitis and abscess with sepsis Secondary to puncture wound while working on hospital kitchen floor on morning of 01/20 Rapid progression of cellulitis on 01/22 in <4 hours Met sepsis criteria with fever and leukocytosis; no hypotension, lactic acidosis, or other severe features Left hand and wrist x-ray showed soft tissue swelling of the thenar eminence and dorsum of the hand without evidence of osteomyelitis. Infectious disease consult, initially recommended vanc, cefepime, and clindamycin, started 01/22; switched to linezolid 01/25 as cellulitis not improving, added meropenen and Diflucan on 01/26 when cellulitis worsened further Ortho consulted, underwent surgical washout on 01/24 Analgesics for pain management, Benadryl for itching HTN Continue amlodipine, clonidine, and labetalol HLD Continue statin Chronic musculoskeletal pain Continue tramadol p.r.n. Full Code DVT Prophylaxis: Lovenox Pt will need continued hospitalization for treatment and further evaluation of left hand cellulitis with sepsis requiring IV antibiotics. Patient's cellulitis is now improving after switching to linezolid and then adding Diflucan and meropenem.. Will require additional hospitalization for monitoring of response to change in antibiotics. Quality Stroke Does the patient have a stroke diagnosis?: No VTE Prior VTE?: No VTE Risk Level:: Medical - moderate - high VTE Device Contraindication: Treatment Not Indicated VTE Drug Contraindication: N/A - Med Ordered
[2025-01-27 09:06] LABS: Anion Gap 15 (12-20); Blood Urea Nitrogen 14 mg/dL (9-16); Calcium 9.7 mg/dL (8.4-10.2); Carbon Dioxide 25 mmol/L (22-29); Chloride 105 mmol/L (96-108); Creatinine Clr Calc Pharmacy 131.4; Estimated Glomerular Filt Rate > 60; Potassium 4.3 mmol/L (3.3-5.1); Sodium 141 mmol/L (135-145)
[2025-01-27] MEDS: Linezolid/D5W 600 MG/300 ML PIGGYBACK 300 MG IV ×2 (10:18→20:28)
[2025-01-27] MEDS: 0.9 % Sodium Chloride Flush 3 ML SYRINGE IVFLUSH ×2 (10:24→14:43)
[2025-01-27 15:21] VITALS: BP 116/69; PULSE 63; RESP 18; TEMP 36.4; O2SAT 94
[2025-01-27 17:19] VITALS: BP 119/62; PULSE 61; O2SAT 93
[2025-01-27 17:30] VITALS: BP 119/62; PULSE 61
[2025-01-27 20:00] VITALS: BP 129/60; PULSE 63; RESP 19; TEMP 36.2; O2SAT 95
[2025-01-28] VITALS (8 sets, daily range): BP systolic 115–133; BP diastolic 61–85; PULSE 63–70; RESP 16–18; TEMP 36.1–36.3; O2SAT 93–96
--- NOTE | 2025-01-28 07:21 | P.PNIM_ITS ---
Subjective Subjective Date of Service: 01/28/25 Interval History: Not worsening since addition of meropenem and Diflucan We will continue IV antibiotics ID and ortho consult Review of Systems Review of Systems: Yes all other systems are reviewed and are negative Physical Exam 2 Exam: Exam: General: AOx3, no acute distress Resp: CTA bilaterally CVS: S1, S2, RRR GI: +BS, NT, no distention Skin: Warm, dry Neuro: Cranial nerves II-XII grossly intact bilaterally. Motor grossly intact bilaterally Extremities: Erythema, warmth, and swelling left upper arm and and improved from yesterday. Left hand as below. As pictured below. Psych: Appropriate affect Vital Signs: Vital Signs: Last Vital Signs Temp 97.2 F 01/28/25 03:59 Pulse 70 01/28/25 03:59 Resp 16 01/28/25 03:59 BP 124/73 01/28/25 03:59 Pulse Ox 93 01/28/25 03:59 O2 Del Method Room Air 01/28/25 03:59 O2 Flow Rate 2 01/24/25 15:26 BMI result Body Mass Index 36.8 Objective Data Active Medications Acetaminophen (Acetaminophen 325 Mg Tablet) 650 mg PO Q6H PRN PRN Reason: Pain, Mild 1-3,fever,headache Last Admin: 01/23/25 09:46 Dose: 650 mg Documented By: BEE Acetaminophen/Butalbital/Caffeine (Butalb/Acetamin/Caff 50/325/40 Tablet) 1 tab PO Q4H PRN PRN Reason: Headache Last Admin: 01/23/25 16:37 Dose: 1 tab Documented By: BEE Amlodipine Besylate (Amlodipine Besylate 5 Mg Tablet) 5 mg PO DAILY [facility]; Protocol Last Admin: 01/27/25 10:07 Dose: 5 mg Documented By: AYDIN Atorvastatin Calcium (Atorvastatin Calcium 10 Mg Tablet) 10 mg PO BEDTIME [facility]ISHA Last Admin: 01/27/25 20:21 Dose: 10 mg Documented By: ARNAUD Calcium Carbonate (Calcium Carbonate 750 Mg Tab.Chew) 750 mg PO Q4H PRN PRN Reason: Heartburn Clonidine HCl (Clonidine Hcl 0.1 Mg Tablet) 0.3 mg PO BID [facility]IS[facility]; Protocol Last Admin: 01/27/25 20:20 Dose: 0.3 mg Documented By: ARNAUD Diphenhydramine HCl (Diphenhydramine Hcl 50 Mg/Ml Vial) 25 mg IVPUSH Q6H PRN PRN Reason: Itching Last Admin: 01/27/25 20:17 Dose: 25 mg Documented By: ARNAUD Enoxaparin Sodium (Enoxaparin Sodium 40 Mg/0.4 Ml Syringe) 40 mg SUBCUT Q24H [facility] Last Admin: 01/27/25 14:25 Dose: 40 mg Documented By: AYDIN Fluconazole (Fluconazole 100 Mg Tablet) 100 mg PO DAILY [facility] Last Admin: 01/27/25 10:07 Dose: 100 mg Documented By: AYDIN Hydromorphone HCl (Hydromorphone Hcl 1 Mg/Ml Syringe) 1 mg IVPUSH Q4H PRN; Protocol PRN Reason: Pain, Severe (Pain Scale 7-10) Last Admin: 01/27/25 20:22 Dose: 1 mg Documented By: ARNAUD Linezolid (Zyvox/D5w) 600 mg in 300 mls @ 300 mls/hr IV Q12H [facility] Last Infusion: 01/27/25 21:30 Dose: Infused Documented By: ARNAUD Labetalol HCl (Labetalol Hcl 100 Mg Tablet) 100 mg PO QID [facility]; Protocol Last Admin: 01/27/25 20:20 Dose: 100 mg Documented By: ARNAUD Magnesium Hydroxide (Milk Of Magnesia 30 Ml Oral.Susp) 30 ml PO DAILY PRN PRN Reason: Constipation Melatonin (Melatonin 3 Mg Tablet) 6 mg PO BEDTIME PRN PRN Reason: Insomnia Meropenem (Meropenem 1 Gm Vial) 1 gm IVPUSH Q8H [facility] Last Admin: 01/28/25 02:30 Dose: 1 gm Documented By: ARNAUD Ondansetron HCl (Ondansetron Hcl 4 Mg/2 Ml Vial) 4 mg IVPUSH Q8H PRN PRN Reason: Nausea and Vomiting Last Admin: 01/22/25 19:28 Dose: 4 mg Documented By: LEFEBVA Sodium Chloride (0.9 % Sodium Chloride Flush 3 Ml Syringe) 3 ml IVFLUSH QSHIFT [facility] Last Admin: 01/28/25 02:00 Dose: Not Given Documented By: ARNAUD Non-Admin Reason: Previously Administered Tramadol HCl (Tramadol Hcl 50 Mg Tablet) 50 mg PO QID PRN PRN Reason: Pain, Moderate(Pain Scale 4-6) Last Admin: 01/25/25 17:06 Dose: 50 mg Documented By: JILLIAN Zinc Acetate/Diphenhydramine (Diphenhydramine Hcl 2 % Cream 28 Gm Tube) 1 appl TOPICAL BID PRN; Protocol PRN Reason: Itching Last Admin: 01/26/25 13:31 Dose: 1 appl Documented By: AYDIN Comments: MD holliday to give now Labs 01/27/25 08:01 01/27/25 08:01 Labs: Laboratory Results - last 24 hr 01/27/25 08:01 MCV 89.0 MCH 29.3 MCHC 32.9 RDW 12.9 Plt Count 413 H MPV 10.2 Absolute Nucleated RBC 0.000 Nucleated RBC % (auto) 0.0 Anion Gap 15 Estim Creat Clear Calc 131.4 Estimated GFR > 60 Random Glucose 117 H Calcium 9.7 Microbiology Microbiology Results: Microbiology 01/22/25 06:24 Blood Culture - Final Blood - Venous No growth after 5 days. 01/22/25 06:24 Blood Culture - Final Blood - Venous No growth after 5 days. Assessment and Plan (1) Cellulitis of left hand: Status: Acute (2) Abscess of hand, left: Status: Acute Plan Pt is a 64-year-old male with a PMH significant for?HTN and HLD who presents to the ED with?left hand and wrist swelling, redness, and pain x1 day. 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 Pt is admitted to the hospital for treatment and further evaluation of left hand cellulitis requiring IV antibiotics. Left hand and forearm cellulitis and abscess with sepsis Secondary to puncture wound while working on hospital kitchen floor on morning of 01/20 Rapid progression of cellulitis on 01/22 in <4 hours Met sepsis criteria with fever and leukocytosis; no hypotension, lactic acidosis, or other severe features Left hand and wrist x-ray showed soft tissue swelling of the thenar eminence and dorsum of the hand without evidence of osteomyelitis. Infectious disease consult, initially recommended vanc, cefepime, and clindamycin, started 01/22; switched to linezolid 01/25 as cellulitis was not improving, added meropenen and Diflucan on 01/26 when cellulitis worsened further -currently appears to be responding to the change in antibiotics Ortho was consulted POA, underwent surgical washout on 01/24 Analgesics for pain management, Benadryl for itching HTN Continue amlodipine, clonidine, and labetalol HLD Continue statin Chronic musculoskeletal pain Continue tramadol p.r.n. Full Code DVT Prophylaxis: Lovenox Pt will need continued hospitalization for treatment and further evaluation of left hand cellulitis with sepsis requiring IV antibiotics. Patient's cellulitis is now improving after switching to linezolid and then adding Diflucan and meropenem.. Will require additional hospitalization for monitoring of response to change in antibiotics. Quality Stroke Does the patient have a stroke diagnosis?: No VTE Prior VTE?: No VTE Risk Level:: Medical - moderate - high VTE Device Contraindication: Treatment Not Indicated VTE Drug Contraindication: N/A - Med Ordered
[2025-01-28] MEDS: 0.9 % Sodium Chloride Flush 3 ML SYRINGE IVFLUSH ×3 (09:05→21:25)
[2025-01-28] MEDS: Linezolid/D5W 600 MG/300 ML PIGGYBACK 300 MG IV ×2 (09:17→21:24)
--- NOTE | 2025-01-28 12:30 | MHC.CM.PN ---
PER MD ROUNDS, PT NOT MEDICALLY CLEARED PLAN TO CONSULT ID FOR LENGTH OF ABX CM FOLLOWING FOR DC NEEDS
--- NOTE | 2025-01-28 22:03 | P.PNID_ITS ---
Subjective Subjective Date of Service: 01/28/25 Critical Care Time (minutes): 15 Comment: He has improvement today with only minor streaking up arm. He feels better and is on Merem and linezolid Objective Data Labs 01/27/25 08:01 01/27/25 08:01 Microbiology Microbiology Results: Microbiology 01/22/25 06:24 Blood - Venous Blood Culture - Final No growth after 5 days. 01/22/25 06:24 Blood - Venous Blood Culture - Final No growth after 5 days. 01/24/25 14:03 Hand Left Gram Stain - Final 01/24/25 14:03 Hand Left Routine Culture - Final Streptococcus pyogenes (Grp A) 01/24/25 13:52 Hand Left Gram Stain - Final 01/24/25 13:52 Hand Left Routine Culture - Final Streptococcus pyogenes (Grp A) Physical Exam 2 Vital Signs: Vital Signs: Last Vital Signs Temp 97.3 F 01/28/25 19:23 Pulse 65 01/28/25 19:23 Resp 18 01/28/25 19:23 BP 128/65 01/28/25 19:23 Pulse Ox 94 01/28/25 19:23 O2 Del Method Room Air 01/28/25 19:23 O2 Flow Rate 2 01/24/25 15:26 BMI result Body Mass Index 36.8 Const: General: cooperative HEENT: Head: Yes normal to inspection Face and sinus: Yes normal facial exam Mouth: Normal oral and palatal mucosa present Teeth and gingiva: d entition normal Eyes: General: appearance normal, both eyes and all related structures P upils: Equal, round and reactive pupils present Resp: Effort & Inspection: normal respiratory effort Cardio: Rate: regular rate Rhythm: regular rhythm GI: Palpation (GI): Soft to palpation and nontender : General: Yes no CVA tenderness Back/Spine/Pelvis: Back: no CVA tenderness Skin: General skin exam: no rashes or lesions noted Neuro: General: moves all extremities Cranial nerves: Yes Equal, round and reactive pupils present Extrem: Other: decreased redness left arm General: Yes normal to inspection Psych: Appearance: grossly normal Assessment and Plan Assessment and plan (1) Acute lymphangitis of left upper extremity: Status: Acute Plan Group A strep wound now improving. Organism often present in throat and in skin It can lead to necrotizing infections in skin Would stop Merem and Diflucan tomorrow and give po linezolid for 10 days which stops toxin production of strep and decreases bacterial burden Time Spent With Patient Time: Total time managing care of this patient today ____ minutes.
[2025-01-29 03:17] VITALS: BP 134/77; PULSE 56; RESP 18; TEMP 36.1; O2SAT 97
[2025-01-29 06:12] LABS: MANUAL DIFF FLAG NO
[2025-01-29 06:13] LABS: Hematocrit 41.9 % (42.0-52.0); Hemoglobin 14.0 g/dl (14.0-18.0); Imm Gran Abs Auto 0.26 X10*3/uL (0.00-0.03); Imm Gran Pct Auto 2.4 % (0.0-0.4); Lymphocytes Absolute Auto 2.5 X10*3/uL (1.2-4.9); Mean Corpuscular HGB Conc 33.4 g/dl (31.0-36.0); Mean Corpuscular Hemoglobin 29.4 pg (27.0-33.0); Mean Corpuscular Volume 88.0 fL (80.0-98.0); NRBC Abs Auto 0.000 X10*3/uL (0.0-0.012); NRBC Pct Auto 0.0 /100WBC (0.0-0.2); Platelet Count 468 X10*3/uL (160-400); Red Blood Count 4.76 X10*6/uL (4.60-5.80); White Blood Count 11.0 X10*3/uL (4.8-10.8)
[2025-01-29 06:31] LABS: Alanine Aminotransferase 51 U/L (0-40); Albumin Level 4.2 g/dL (3.5-5.0); Alkaline Phosphatase 98 U/L (39-117); Anion Gap 15 (12-20); Aspartate Amino Transferase 33 U/L (5-37); Blood Urea Nitrogen 22 mg/dL (9-16); Calcium 9.9 mg/dL (8.4-10.2); Carbon Dioxide 27 mmol/L (22-29); Chloride 103 mmol/L (96-108); Creatinine Clr Calc Pharmacy 91.5; Estimated Glomerular Filt Rate > 60; Magnesium 2.6 mg/dL (1.6-2.6); Potassium 5.0 mmol/L (3.3-5.1); Sodium 140 mmol/L (135-145); Total Protein 7.3 g/dL (6.5-8.0)
--- NOTE | 2025-01-29 07:16 | P.PNIM_ITS ---
Subjective Subjective Date of Service: 01/29/25 Physical Exam 2 Vital Signs: Vital Signs: Last Vital Signs Temp 97 F 01/29/25 03:17 Pulse 56 01/29/25 03:17 Resp 18 01/29/25 03:17 BP 134/77 01/29/25 03:17 Pulse Ox 97 01/29/25 03:17 O2 Del Method Room Air 01/29/25 03:17 O2 Flow Rate 2 01/24/25 15:26 BMI result Body Mass Index 36.8 Objective Data Active Medications Acetaminophen (Acetaminophen 325 Mg Tablet) 975 mg PO Q6H [facility] Last Admin: 01/29/25 05:07 Dose: 975 mg Documented By: BETO Acetaminophen/Butalbital/Caffeine (Butalb/Acetamin/Caff 50/325/40 Tablet) 1 tab PO Q4H PRN PRN Reason: Headache Last Admin: 01/23/25 16:37 Dose: 1 tab Documented By: BEE Amlodipine Besylate (Amlodipine Besylate 5 Mg Tablet) 5 mg PO DAILY [facility]; Protocol Last Admin: 01/28/25 09:06 Dose: 5 mg Documented By: AYDIN Atorvastatin Calcium (Atorvastatin Calcium 10 Mg Tablet) 10 mg PO BEDTIME LATISHA Last Admin: 01/28/25 21:23 Dose: 10 mg Documented By: BETO Calcium Carbonate (Calcium Carbonate 750 Mg Tab.Chew) 750 mg PO Q4H PRN PRN Reason: Heartburn Clonidine HCl (Clonidine Hcl 0.1 Mg Tablet) 0.3 mg PO BID [facility]; Protocol Last Admin: 01/28/25 21:23 Dose: 0.3 mg Documented By: BETO Diphenhydramine HCl (Diphenhydramine Hcl 25 Mg Capsule) 25 mg PO Q6H PRN PRN Reason: Itching Enoxaparin Sodium (Enoxaparin Sodium 40 Mg/0.4 Ml Syringe) 40 mg SUBCUT Q24H [facility] Last Admin: 01/28/25 14:00 Dose: 40 mg Documented By: AYDIN Labetalol HCl (Labetalol Hcl 100 Mg Tablet) 100 mg PO QID [facility]; Protocol Last Admin: 01/28/25 21:23 Dose: 100 mg Documented By: BETO Linezolid (Linezolid 600 Mg Tablet) 600 mg PO Q12H [facility] Stop: 02/07/25 23:44 Magnesium Hydroxide (Milk Of Magnesia 30 Ml Oral.Susp) 30 ml PO DAILY PRN PRN Reason: Constipation Melatonin (Melatonin 3 Mg Tablet) 6 mg PO BEDTIME PRN PRN Reason: Insomnia Ondansetron HCl (Ondansetron Hcl 4 Mg/2 Ml Vial) 4 mg IVPUSH Q8H PRN PRN Reason: Nausea and Vomiting Last Admin: 01/22/25 19:28 Dose: 4 mg Documented By: PRICILA Sodium Chloride (0.9 % Sodium Chloride Flush 3 Ml Syringe) [address] [facility] Last Admin: 01/28/25 21:25 Dose: 3 ml Documented By: BETO Tramadol HCl (Tramadol Hcl 50 Mg Tablet) 50 mg PO QID PRN PRN Reason: Pain, Moderate(Pain Scale 4-6) Last Admin: 01/25/25 17:06 Dose: 50 mg Documented By: JILLIAN Zinc Acetate/Diphenhydramine (Diphenhydramine Hcl 2 % Cream 28 Gm Tube) 1 appl TOPICAL BID PRN; Protocol PRN Reason: Itching Last Admin: 01/26/25 13:31 Dose: 1 appl Documented By: AYDIN Comments: MD holliday to give now Labs 01/29/25 05:39 01/29/25 05:38 Labs: Laboratory Results - last 24 hr 01/29/25 01/29/25 05:38 05:39 MCV 88.0 MCH 29.4 MCHC 33.4 RDW 12.7 Plt Count 468 H MPV 10.3 Immature Gran % (Auto) 2.4 H Neut % (Auto) 59.5 Lymph % (Auto) 22.6 [place] % (Auto) 8.9 Eos % (Auto) 5.4 H Baso % (Auto) 1.2 Lymph # (Auto) 2.5 [place] # (Auto) 1.0 Eos # (Auto) 0.6 H Baso # (Auto) 0.1 Abs Immat Gran (auto) 0.26 H Absolute Neuts (auto) 6.6 Absolute Nucleated RBC 0.000 Nucleated RBC % (auto) 0.0 Anion Gap 15 Estim Creat Clear Calc 91.5 Estimated GFR > 60 Random Glucose 130 H Calcium 9.9 Magnesium 2.6 Total Bilirubin 0.4 AST 33 ALT 51 H Alkaline Phosphatase 98 Total Protein 7.3 Albumin 4.2 Quality Stroke Does the patient have a stroke diagnosis?: No VTE Prior VTE?: No VTE Risk Level:: Medical - moderate - high VTE Device Contraindication: Treatment Not Indicated VTE Drug Contraindication: N/A - Med Ordered
[2025-01-29 07:44] VITALS: BP 129/83; PULSE 58; RESP 18; TEMP 36; O2SAT 96
[2025-01-29] MEDS: 0.9 % Sodium Chloride Flush 3 ML SYRINGE IVFLUSH (08:22)
--- NOTE | 2025-01-29 09:15 | PM.DS ---
DS: Providers Provider Date of admission: 01/22/25 11:33 Date of discharge: 01/29/25 Primary care physician: Musa Miner MD Consults: 01/22/25 14:08 Consult to Orthopedics Routine Consulting [place] [facility] Reason for consultation: Left hand cellulitis 01/22/25 14:11 Consult to Infectious Diseases Routine Consulting Provider: [facility] Reason for consultation: Left hand cellulitis, rapid progression 01/28/25 23:42 Consult to Wound Care Routine Consulting Provider: [facility] Reason for consultation: I &D wound care site DS: Diagnosis Discharge Diagnosis (1) Acute lymphangitis of left upper extremity: Status: Acute DS: Summary Hospital Course Hospital Course: Per H &P : Chief Complaint: Left hand pain and swelling Pt is a 64-year-old male with a PMH significant for?HTN and HLD who presents to the ED with?left hand and wrist swelling, redness, and pain x1 day. 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 At the time no significant cut or bleeding and the pt felt very little of it. Later on Tuesday pt began having fever and chills which he initially attributed to a cold. This morning, however pt noticed significant redness, swelling, and pain in his left hand with red streaks running up his arm which prompted his visit to the ED. Also complains of headache and reduced appetite. No nausea, vomiting, or abdominal pain. In the ED pt was hypertensive up to 166/83, vitals otherwise stable and WNL. Labs were significant for leukocytosis of 18.0, ESR 18 but CRP 15.27. Left hand and wrist x-ray showed soft tissue swelling of thenar eminence and dorsum of hand without evidence of osteomyelitis. CXR without acute process Pt was treated in the ED with morphine, to look acetaminophen, IVF, cefepime, vancomycin, and clindamycin. Pt is admitted to the hospital for treatment and further evaluation of left hand cellulitis requiring IV antibiotics. Hospital course : Left Hand and Forearm Cellulitis with Abscess / Sepsis: The patient developed rapid progression of cellulitis on 01/22 over less than four hours and met sepsis criteria with fever and leukocytosis, without hypotension, lactic acidosis, or other severe features. Left hand and wrist Xray demonstrated soft tissue swelling of the thenar eminence and dorsum of the hand without evidence of osteomyelitis. Likely due to strep cellulitis Infectious Disease was consulted. Initial antibiotic therapy included vancomycin, cefepime, and clindamycin starting on 01/22. Due to lack of clinical improvement, antibiotics were changed to linezolid on 01/25. With further worsening of cellulitis, meropenem and fluconazole were added on 01/26. Following these changes, the patient demonstrated clinical improvement. Patient's antibiotic was changed to p.o. linezolid and discontinued fluconazole and meropenem with ID guidance. Patient to complete 10 day course of linezolid which will help with decreased toxin production and antibacterial properties. Orthopedic Surgery was consulted on admission, and the patient underwent surgical washout of the left hand on 01/24. Pain was managed with analgesics, and diphenhydramine was used as needed for itching. The patient?s cellulitis improved on the revised antimicrobial regimen, and he remained hemodynamically stable. Hypertension: Home antihypertensive regimen was continued with amlodipine, clonidine, and labetalol, with stable blood pressures during hospitalization. Hyperlipidemia: Statin therapy was continued. Chronic Musculoskeletal Pain: Managed with tramadol as needed. Prophylaxis: The patient received enoxaparin for DVT prophylaxis during hospitalization. Time spent discussing smoking cessation with patient: more than 10 minutes Status at Discharge Functional status at discharge: independent ambulation Overall status at discharge: patient is progressing back to baseline Time Attestation Discharge Coordination Time (in mins): 75 Quality: Safe Use of Opioids Does Pt have an Active Cancer Diagnosis on the Problem List?: No Quality: Stroke Does the patient have a stroke diagnosis?: No Physical Exam Exam: Exam: General: AOx3, no acute distress Resp: CTA bilaterally CVS: S1, S2, RRR GI: +BS, NT, no distention Neuro: Cranial nerves II-XII grossly intact bilaterally. Motor grossly intact bilaterally Extremities: Erythema, warmth, and swelling left upper arm and and improved from yesterday. Patient able to make a fist. Psych: Appropriate affect Vital Signs: Vital Signs: Last Vital Signs Temp 96.8 F 01/29/25 07:44 Pulse 58 01/29/25 07:44 Resp 18 01/29/25 07:44 BP 129/83 01/29/25 07:44 Pulse Ox 96 12/23/25 07:44 O2 Del Method Room Air 01/29/25 07:44 O2 Flow Rate 2 01/24/25 15:26 BMI result Body Mass Index 36.8 DS: Data Data Completed and Pending Labs on day of discharge: Laboratory Results - last 24 hr 01/29/25 01/29/25 05:38 05:39 WBC 11.0 H RBC 4.76 Hgb 14.0 Hct 41.9 L MCV 88.0 MCH 29.4 MCHC 33.4 RDW 12.7 Plt Count 468 H MPV 10.3 Immature Gran % (Auto) 2.4 H Neut % (Auto) 59.5 Lymph % (Auto) 22.6 [place] % (Auto) 8.9 Eos % (Auto) 5.4 H Baso % (Auto) 1.2 Lymph # (Auto) 2.5 [place] # (Auto) 1.0 Eos # (Auto) 0.6 H Baso # (Auto) 0.1 Abs Immat Gran (auto) 0.26 H Absolute Neuts (auto) 6.6 Absolute Nucleated RBC 0.000 Nucleated RBC % (auto) 0.0 Sodium 140 Potassium 5.0 Chloride 103 Carbon Dioxide 27 Anion Gap 15 BUN 22 H Creatinine 1.12 Estim Creat Clear Calc 91.5 Estimated GFR > 60 Random Glucose 130 H Calcium 9.9 Magnesium 2.6 Total Bilirubin 0.4 AST 33 ALT 51 H Alkaline Phosphatase 98 Total Protein 7.3 Albumin 4.2 Discharge Plan Discharge Anticipated Discharge Date/Time: 01/29/25 09:26 Patient Disposition: Home, Self-Care Discharge Diagnosis: Likely strep cellulitis status post trauma Left Hand and Forearm Cellulitis with Abscess / Sepsis Referrals: Kaleb Bowers PA [Physician Forest Engineer, Hand Surgery] - 1 Week Shirley Jauregui MD [Physician, Infectious Disease] - 1 Week Musa Miner MD [Primary Care Provider, Internal Medicine] - 1 Week Adali Hatfield MD [Physician, Hand Surgery] - 1 Week Discharge Medications: New Banophen Anti-Itch 2-0.1 % Cream 1 appl topical BID PRN (Reason: Itching) 30 Days Qty: 28 3RF Protocol: Apply to: Apply to: left arm acetaminophen 325 mg Tablet 975 mg PO Q6H 10 Days Qty: 120 3RF linezolid 600 mg Tablet 600 mg PO Q12H 10 Days Qty: 20 0RF diphenhydramine HCl 25 mg Capsule 25 mg PO Q6H PRN (Reason: Itching) 15 Days Qty: 20 0RF Continued atorvastatin 10 mg tablet 10 mg PO BEDTIME Qty: 90 1RF clonidine HCl 0.3 mg tablet 0.3 mg PO BID Qty: 180 1RF tramadol 50 mg tablet 50 mg PO QID PRN (Reason: pain, severe) 30 Days Qty: 120 1RF labetalol 200 mg tablet 100 mg PO QID amlodipine 5 mg tablet 5 mg PO DAILY 30 Days Qty: 30 4RF Discharge Orders: Discharge Order (Routine); Ordered 01/29/25 Ordered By: Masha Bustillo Diet: Low salt diet Activity on Discharge: As tolerated Stand Alone Forms: Patient Portal Discharge page, Work/School Release Print Language: Thai Activity Restrictions/Additional Instructions: Wound Care Keep left hand and wrist wound clean, dry, and covered. Perform daily dressing changes or as directed by Orthopedic Surgery. Clean gently with normal saline; do not soak the hand. Apply dressing as instructed (dry sterile dressing unless otherwise specified). Observe daily for increasing redness, swelling, warmth, pain, drainage, or foul odor. Sutures/gregorio (if present): do not remove; removal to be done by Orthopedics. Activity Restrictions No lifting, pushing, or pulling with the left hand. Avoid repetitive gripping or forceful use of the left hand. Elevate left hand when at rest to reduce swelling. Range?of?motion exercises only as directed by Orthopedics. 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 When to Seek Medical Attention Fever or chills. Worsening pain, swelling, or spreading redness. Drainage or bleeding from the wound. Numbness, tingling, or decreased movement of fingers. Care Plan Goals: Completing antibiotic course Please follow up with wound care, orthopedics, PCP, ID within a week after discharge Health Concerns: See above Plan of Treatment: See above Assessment: See above Patient Instructions: Cellulitis (GEN)
--- NOTE | 2025-01-29 09:53 | MHC.CM.PN ---
DP: PT HAS BEEN MEDICALLY CLEARED FOR DC HOME, NO SERVICES. PT HAS OWN [facility]IDE HOME.
== END 2025-01-29 11:44 | disposition home or self-care (01) | DRG 710 ==
LOC: HO.ED 10:53 → HO.EDOVER 11:41 → HO.S3 17:03
PROVIDERS: Orthopaedic Surgery; Physician Assistant Medical; Admitting Provider Student in an Organized Health Care Education/Training Program; Emergency Provider Emergency Medicine Emergency Medical Services; PCP Family Medicine; Visit Provider Student in an Organized Health Care Education/Training Program
PROC: 0J9K0ZZ Drainage of Left Hand Subcutaneous Tissue and Fascia, Open Approach (ICD-10-PCS; principal; 2025-01-24 14:20)
DX: A41.9 Sepsis, unspecified organism (principal); E78.5 Hyperlipidemia, unspecified; L03.124 Acute lymphangitis of left upper limb; I10 Essential (primary) hypertension; L03.114 Cellulitis of left upper limb; S61.432A Puncture wound without foreign body of left hand, initial encounter; L02.512 Cutaneous abscess of left hand; W27.0XXA Contact with workbench tool, initial encounter; B95.0 Streptococcus, group A, as the cause of diseases classified elsewhere; G89.29 Other chronic pain; Y99.0 Civilian activity done for income or pay; Z20.822 Contact with and (suspected) exposure to COVID-19; Z88.0 Allergy status to penicillin; Z79.899 Other long term (current) drug therapy
CPT/HCPCS: 36415; 71046; 73110; 73130; 73201; 80048; 80053; 80202; 80307; 82565; 83605; 83735; 85025; 85027; 85652; 86140; 86704; 86706; 86709; 86803; 87040; 87070; 87147; 87205; 87340; 87389; 87637; 90715; 97165; 99285; J0131; J0692; J0736; J1171; J1200; J1271; J1650; J2003; J2004; J2020; J2185; J2270; J2405; J2704; J3010; J3373; J3374; J7120; Q9967

== ENCOUNTER → 2025-01-22 07:35 | Outpatient (BNV) | payer OTHER, SELFPAY | PROVIDERS: Emergency Provider Emergency Medicine Emergency Medical Services; PCP Family Medicine; Visit Provider Radiology Diagnostic Radiology | DX: R05.9 Cough, unspecified (principal); R06.02 Shortness of breath; M79.89 Other specified soft tissue disorders | CPT/HCPCS: 71046; 73110; 73130 ==

== ENCOUNTER 2025-01-22 11:33 | Outpatient (BNV) | payer OTHER, SELFPAY | END 2025-01-26 18:37 | PROVIDERS: Admitting Provider Student in an Organized Health Care Education/Training Program; Emergency Provider Emergency Medicine Emergency Medical Services; PCP Family Medicine; Visit Provider Student in an Organized Health Care Education/Training Program | DX: R60.0 Localized edema (principal) | CPT/HCPCS: 73201 ==

== ENCOUNTER → 2025-01-22 11:33 | Outpatient (BNV) | payer OTHER, SELFPAY | PROVIDERS: Admitting Provider Student in an Organized Health Care Education/Training Program; Emergency Provider Emergency Medicine Emergency Medical Services; PCP Family Medicine; Visit Provider Student in an Organized Health Care Education/Training Program | DX: L03.114 Cellulitis of left upper limb (principal); L02.512 Cutaneous abscess of left hand | CPT/HCPCS: 99233; 99499 ==

== ENCOUNTER → 2025-01-22 11:33 | Outpatient (BNV) | payer OTHER, SELFPAY | PROVIDERS: Admitting Provider Student in an Organized Health Care Education/Training Program; Emergency Provider Emergency Medicine Emergency Medical Services; PCP Family Medicine | DX: L03.124 Acute lymphangitis of left upper limb (principal); L03.114 Cellulitis of left upper limb | CPT/HCPCS: 99232 ==

== ENCOUNTER → 2025-01-22 11:33 | Outpatient (BNV) | payer OTHER, SELFPAY | PROVIDERS: Admitting Provider Student in an Organized Health Care Education/Training Program; Emergency Provider Emergency Medicine Emergency Medical Services; PCP Family Medicine; Visit Provider Internal Medicine | DX: L03.124 Acute lymphangitis of left upper limb (principal) | CPT/HCPCS: 99232 ==

== ENCOUNTER 2025-02-04 11:34 | Outpatient (AMB) | payer OTHER, SELFPAY ==
--- NOTE | 2025-02-04 11:52 | A.OFFVIS_ITS ---
Vital Signs 02/04/25 11:58 Height 6 ft Weight 260 lb BMI 35.3 Intake Visit Reasons: PO-I and D of left hand-01/24/25 Intake Note: Papo is a 64 year old right hand dominant male, new patient, who presents today for their first Post-operative visit after undergoing a Left Hand I&D of the 1st webspace and thenar bursa, DOS: 01/24/[address] Hatfield, DOI: 01/20/25. Patient wasn on IV antibiotics. At today's visit he states that he has three more days of the antibiotics and that he has kept his hand clean, dry. Patient reports that the left hand is still draining and his ROM is normal. Patient reports that the hand infection went up to his bicep with swelling and noted that the swelling has gone down. Patient reports that he has been out of work since the date of injury and would like to discuss his options. Allergies bee pollen (bee stings) Allergy (Intermediate, Verified 02/04/25 12:02) Unknown Penicillins Adverse Reaction (Verified 01/22/25 05:48) Hives HPI HPI PO-I and D of left hand-01/24/25: Details: Papo is a 64 year old right hand dominant male, new patient, who presents today for their first Post-operative visit after undergoing a Left Hand I&D of the 1st webspace and thenar bursa, DOS: 01/24/[address] Hatfield, DOI: 01/20/25. Patient was on on IV antibiotics. At today's visit he states that he has three more days of PO antibiotics and that he has kept his hand clean, dry. Patient reports that the left hand is still draining and his ROM is normal. Patient reports that the hand infection went up to his bicep with swelling and noted that the swelling has gone down. Patient states there is minimal clear discharge from the incision site, but nothing beyond this Patient reports that he has been out of work since the date of injury and would like to discuss his options. [facility] Medical History Chronic lower back pain Chronic right shoulder pain Arthritis HTN (hypertension) Surgical History S/P knee surgery Family History Mother No problems noted. Father High blood pressure Social History Household Members: Spouse Housing: House Do you presently have visiting nurse or other home services: No Alcohol intake: current Alcohol intake frequency: a few times a month Alcohol type: beer Patient Tobacco Use Status: Never used Tobacco service: No Current occupational status: employed Current occupation: [employer] - envi[employer] Current occupational exposures/hazards: No Cognitive needs: No Hearing needs: No Vision needs: No Physical Exam Vital Signs: BMI result Body Mass Index 35.3 Extrem Other: Patient is alert, oriented, and in no acute distress. Neuro: Normal sensation of the tips of all digits of the left hand at this time Vascular: Cap refill brisk Pain: Very minimal tenderness to palpation about thenar eminence and 1st webspace of left hand No pain with range of motion of the left hand ROM: Patient was able to make a closed fist and extend all digits of the left hand fully Skin: Incision sites on dorsal and volar aspects of the 1st webspace of the left hand appear to be healing well There is some minimal serous drainage noted from the dorsal incision site General: No ecchymosis, erythema, or evidence of infection. Psych: Appears grossly normal Affect normal Attitude cooperative Assessment & Plan Assessment & Plan (1) Cellulitis of left hand: Comment: He has worsening Concern for additional abscess,has just had I and D per Hand Code(s): L03.114 - Cellulitis of left upper limb Category: Medical (2) Abscess of hand, left: Code(s): L02.512 - Cutaneous abscess of left hand Category: Medical (3) Acute lymphangitis of left upper extremity: Code(s): L03.124 - Acute lymphangitis of left upper limb Category: Medical Plan 1. Status post I and D of left hand DOS 01/24/2025 No signs of active ongoing infection at this time Continue p.o. 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
[2025-02-04 11:58] VITALS: BMI 35.3
== END 2025-02-04 12:20 | disposition home or self-care (01) ==
LOC: HO.HOS 11:35
PROVIDERS: PCP Family Medicine
DX: L03.114 Cellulitis of left upper limb (principal); L02.512 Cutaneous abscess of left hand; L03.124 Acute lymphangitis of left upper limb
CPT/HCPCS: 99024